=== PATIENT | male | born 1985 | race African-American/Black ===

== ENCOUNTER 2020-09-01 10:51 | Outpatient (REF) | payer MEDICAID, OTHER, SELFPAY ==
--- NOTE | 2020-09-01 | US_ITS ---
EXAMINATION: RENAL ULTRASOUND CLINICAL INFORMATION: Hematuria proteinuria COMPARISON: None TECHNIQUE: Grayscale and color imaging of the kidneys FINDINGS: The kidneys are normal in contour and symmetric in size with the right kidney measuring 10.7 x 5.5 x 5.5 cm and the left kidney measuring 10.8 x 6.1 x 4.3 cm. Renal cortical thickness and echogenicity is normal. No renal stone, mass or hydronephrosis is seen. IMPRESSION: Normal renal ultrasound.
== END 2020-09-01 10:52 | disposition home or self-care (01) ==
LOC: HO.US 10:51
PROVIDERS: PCP Nurse Practitioner Primary Care; Visit Provider Nurse Practitioner Primary Care
DX: R31.9 Hematuria, unspecified (principal); R80.9 Proteinuria, unspecified
CPT/HCPCS: 76775

== ENCOUNTER → 2020-09-07 15:14 | Outpatient (REF) | payer MEDICAID, OTHER, SELFPAY ==
--- NOTE | 2020-09-07 15:00 | CA_ITS ---
Transthoracic Echocardiogram Patient (Last, First, Middle): Brian Burroughs Foster Mancilla Gender: Male Date of : 1985 Age: 35 Procedure Date: 09/07/2020 Procedure Type: Transthoracic Echocardiogram Location: OP Height: 170.18 cm Weight: 64.41 kg BSA: 1.75 m2 Heart Rate: bpm BP: 122 / 60 mmHg Mobile Manager: Referring MD: Cristina Hong NP Symptoms: CARDIAC MURMUR Study Quality: Good ECG Rhythm: Sinus Conclusions: - The left ventricular systolic function is normal. The visually estimated ejection fraction is between 60-65%. - There is evidence of a small membranous ventricular septal defect with left to right shunting. The membranous VSD measures 0.60 cm x 0.60 cm. - No obvious valvular pathology seen on this study. - The pulmonary artery systolic pressure is normal. Findings Left Ventricle Normal left ventricular cavity size. There is normal left ventricular wall thickness. The left ventricular systolic function is normal. The visually estimated ejection fraction is between 60-65%. There is no evidence of regional wall motion abnormalities. Diastolic function is normal for age. There is evidence of a small membranous ventricular septal defect with left to right shunting. The membranous VSD measures 0.60 cm x 0.60 cm. Peak gradient across the VSD 73 mm Hg. Right Ventricle Mildly increased right ventricular cavity size. There is normal right ventricular systolic function. Atria The left atrium is mildly dilated. The right atrium is normal in size. Aortic Valve There is a normal trileaflet aortic valve. There is no aortic valve stenosis. There is no aortic valve regurgitation. Mitral Valve The mitral valve appears normal. There is trace mitral valve regurgitation. There is no mitral valve stenosis. Pulmonic Valve The pulmonic valve was not well visualized. There is trace pulmonic valve regurgitation. Tricuspid Valve Normal tricuspid valve structure. There is trace tricuspid valve regurgitation. The pulmonary artery systolic pressure is normal. Great Vessels The aortic annulus, sinuses of valsalva, and asc aorta are normal in size. Venous The inferior vena cava is normal in size and collapses greater than 50% with inspiration. Prior Study Comparison No prior study available for comparison. Recommendations, Care & Conclusions No obvious valvular pathology seen on this study. Measurements 2D Linear Measurements IVSd: 0.88 0.6-0.9/0.6-1.0 cm LVIDd: 4.91 3.9-5.3/4.2-5.9 cm LVIDd Index: 2.81 2.4-3.2/2.2-3.1 cm/m2 LVIDs: 2.75 2.0-3.6 cm LVPWd: 0.97 0.7-1.1 cm Ao Root: 2.40 2.1-3.5 cm LA Diam: 3.10 2.7-3.8/3.0-4.0 cm LAIDs Index: 1.77 1.5-2.3 cm/m2 LV Mass: 198.31 67-162/88-224 g LV Mass Index: 113.32 43-95/49-115 g/m2 LVOT Diam: 2.10 3.0+(-)1.3 cm Mitral Valve MV Pk E: 0.77 MV PK A: 0.49 MV Decel Time: 215.00 E/A: 1.60 E'Lateral: 15.80 E'Medial: 11.00 E/E' Med: 7.00 E/E' Lat: 4.80 PHT: 63.00 MVA PHT: 3.49 Decel Hardin: 3.57 Aortic Valve AoV Pk Jose Angel: 1.64 AoV Mn Jose Angel: 1.03 AoV VTI: 0.32 AoV Pk Grad: 11.00 Aov Mn Grad: 5.00 TRUDI Cont.VTI: 2.15 LVOT LVOT Pk Jose Angel: 1.06 LVOT Mn Jose Angel: 0.64 LVOT VTI: 0.20 LVOT Pk Grad: 4.00 LVOT Mn Grad: 2.00 LVOT Diam: 2.10 LVOT Area: 3.46 Diastolic Function MV Pk E: 0.77 MV Pk A: 0.49 E/A: 1.60 E'Medial: 11.00 E/E' Med: 7.00 E' Laterial: 15.80 E/E' Lat: 4.80 Tricuspid Valve TR Pk Jose Angel: 2.07 TR Pk Grad: 17.00 RA Press: 3.00 RVSP: 20.00 Great Vessels Aorta Ao Root-2D: 2.40 2.0-3.7 cm Pulmonary Valve PV Pk Jose Angel: 1.45 Peak PV Grad: 8.00 Updated in Other Vendor System with Status of Final Lauro Agrawal MD electronically signed on 09/07/2020 5:45:43 PM with status of Final
== END ==
LOC: HO.CARD 15:14
PROVIDERS: PCP Nurse Practitioner Primary Care; Visit Provider Nurse Practitioner Primary Care
DX: R01.1 Cardiac murmur, unspecified (principal)
CPT/HCPCS: 93306

== ENCOUNTER 2020-11-24 13:53 | Outpatient (REF) | payer OTHER, SELFPAY | END 2020-11-24 13:54 | disposition home or self-care (01) | LOC: HO.LAB 13:53 | PROVIDERS: PCP Nurse Practitioner Primary Care; Visit Provider Internal Medicine | DX: Z20.828 Contact with and (suspected) exposure to other viral communicable diseases (principal) | CPT/HCPCS: C9803; U0003 ==

== ENCOUNTER 2020-12-20 11:25 | Outpatient (REF) | payer OTHER, SELFPAY | END 2020-12-20 11:26 | disposition home or self-care (01) | LOC: HO.LAB 11:25 | PROVIDERS: Visit Provider Internal Medicine | DX: Z20.822 Contact with and (suspected) exposure to COVID-19 (principal) | CPT/HCPCS: 36415; C9803; U0003 ==

== ENCOUNTER 2021-01-03 13:45 | Outpatient (REF) | payer OTHER, SELFPAY | END 2021-01-03 13:46 | disposition home or self-care (01) | LOC: HO.LAB 13:45 | PROVIDERS: Visit Provider Internal Medicine | DX: Z20.822 Contact with and (suspected) exposure to COVID-19 (principal) | CPT/HCPCS: 36415; C9803; U0003; U0005 ==

== ENCOUNTER 2022-02-06 12:03 | Outpatient (REF) | payer OTHER, SELFPAY ==
--- NOTE | ~2022-02-06 | XR_ITS ---
EXAMINATION: XR LUMBOSACRAL SPINE CLINICAL INFORMATION: Low back pain COMPARISON: None TECHNIQUE: Three views of the lumbosacral spine. FINDINGS: There is normal lumbar segmentation with 5 nonrib-bearing lumbar vertebrae of normal height and normal lumbar lordosis. There is no vertebral compression, spondylolisthesis, destructive process. No definite focal disc narrowing and no erosive change. There is borderline anterior spurring mid to lower vertebral bodies. The SI joints and visualized sacrum are unremarkable. XR/XR lumbar spine 2-3V IMPRESSION: Unremarkable examination.
== END 2022-02-06 12:04 | disposition home or self-care (01) ==
LOC: HO.XRAY 12:03
PROVIDERS: Absent Provider Nurse Practitioner Primary Care; PCP Nurse Practitioner Primary Care; Visit Provider Emergency Medicine
DX: M54.50 Low back pain, unspecified (principal)
CPT/HCPCS: 72100

== ENCOUNTER 2022-03-08 13:42 | Outpatient (RCR) | payer OTHER, SELFPAY | END 2022-03-30 10:44 | disposition home or self-care (01) | LOC: HO.PT 13:42 | PROVIDERS: PCP Nurse Practitioner Primary Care; Visit Provider Emergency Medicine | DX: M54.50 Low back pain, unspecified (principal) | CPT/HCPCS: 97110; 97161; 97530 ==

== ENCOUNTER 2024-11-30 09:07 | Emergency (ER) | payer OTHER, SELFPAY ==
[2024-11-30 09:31] VITALS: BP 109/71; PULSE 95; RESP 18; TEMP 36.3; O2SAT 100; BMI 23.7
[2024-11-30 11:40] VITALS: BP 117/72; PULSE 79; RESP 18; O2SAT 99
[2024-11-30] MEDS: Lidocaine HCl 1 % MPF 5 ML VIAL 10 ML SUBCUT (11:55)
--- NOTE | 2024-11-30 12:10 | ED.SKABFB ---
HPI - Skin/Abscess/Foreign Bdy General Chief complaint: Skin/Abscess/Foreign Body Stated complaint: abscess? 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 Mcgrath HPI narrative: 39-year-old male came in for evaluation of a painful nodule in between the buttock cheeks for the past day, can not sit down can not put any pressure on his behind for severe pain, no fever, no chills Related Data Previous Rx's ?Medication ?Instructions ?Recorded doxycycline hyclate 100 mg tablet 100 mg PO BID #14 tabs 11/30/24 Allergies Allergy/AdvReac Type Severity Reaction Status Date / Time No Known Allergies Allergy Verified 11/30/24 09:32 Review of Systems Review of Systems: All other systems are reviewed and are negative Constitutional: Reports as per HPI and Reports no additional constitutional complaints Eyes: Reports as per HPI and Reports no additional eye complaints Reports system reviewed and no additional complaints, except as documented Cardiovascular: Reports as per HPI and Reports no additional cardiovascular complaints Respiratory: Reports as per HPI and Reports no additional respiratory complaints Gastrointestinal: Reports as per HPI and Reports no additional gastrointestinal complaints Genitourinary: Reports no additional female genitourinary complaints Musculoskeletal: Reports no additional musculoskeletal complaints Skin/Breast: Reports system reviewed and no additional complaints, except as docu Psychiatric: Reports no additional psychiatric complaints Endocrine: Reports no additional endocrine complaints Hematologic/Lymphatic: Reports no additional hematologic/lymphatic complaints Allergic/Immunologic: Reports no additional allergic/immunologic complaints Reports system reviewed and no additional complaints, except as documented and Reports Abnormal speech present [facility] Social History Social History Advance Directives: No Advance Directives Information Provided: Yes Physical Exam Vital Signs: Vital Signs: Last Vital Signs Temp 97.3 F 11/30/24 09:31 Pulse 79 11/30/24 11:40 Resp 18 11/30/24 11:40 BP 117/72 11/30/24 11:40 Pulse Ox 99 11/30/24 11:40 O2 Del Method Room Air 11/30/24 11:40 BMI result Body Mass Index 23.7 Vital signs have been reviewed and appear to be correct. Blood pressure elevated. Heart rate normal. Respiratory rate normal. Temperature normal. Oxygen saturation normal. Appearance: Alert. Oriented X3. No acute distress. Head: Normal external exam. Normocephalic. Atraumatic. No Prieto signs noted. No raccoon eyes noted Eyes: PERRLA. EOMI. Conjunctiva and sclera normal. Eyelids normal. ENT: TM's Normal. Pharynx normal. Uvula midline. Moist mucous membranes. No trismus noted. No drooling noted. No muffled voice noted. Neck: Normal inspection. Neck supple. FROM. No adenopathy. Thyroid Normal. No meningeal signs. No neck mass noted. CVS: Normal heart rate and rhythm. Heart sound normal. No murmurs noted. Pulses normal throughout. Respiratory: No respiratory distress. Painless inspiration. Breath sounds normal. No wheezes/rales/rhonchi noted. Chest nontender. No accessory muscle usage noted or decreased air movement noted. Abdomen: Soft and nontender. Bowel sounds normal in all 4 quadrants. No distention noted. No organomegaly noted. No visible injury noted. Rectal exam: +fluctuation nodule along the superior gluteal fold, tender to touch. Skin is slightly erythematous. Back: No CVA tenderness. Full range of motion noted. Skin: Skin warm and dry. Normal skin color. Normal skin turgor. No rashes/lesions/lacerations noted. Extremities: No lower extremity edema. Extremities exhibit normal range of motion. Extremities nontender. Neuro: Oriented X 3. Cranial nerve exam: II-XII are grossly intact No motor deficit. No sensory deficit. Reflexes normal. Course Reevaluation(s) Reevaluation #1: Pilonidal cyst and abscess, s/p I and D, doxycycline, Sitz bath, follow-up with surgery. Time: 12:18 Medications Administered Discontinued Medications Generic Name Dose Route Start Last Admin Trade Name Freq PRN Reason Stop Dose Admin Lidocaine HCl 10 ml 11/30/24 11:52 11/30/24 11:55 Lidocaine Hcl 1 % Mpf 5 Ml Vial SUBCUT 11/30/24 11:53 10 ml ONCE ONE Administration Medical Decision Making Differential Diagnosis Differential Diagnoses: The differential diagnosis associated with the presentation includes (Pilonidal abscess, hemorrhoids.) Admission/Observation Consideration of admission/observation: Escalation of care including admission/observation considered Discharge Plan Discharge Clinical Impression: Pilonidal abscess Patient Disposition: Home, Self-Care Instructions: Sitz Bath (DC), Pilonidal Cyst Excision (DC) Additional Instructions: Sitz bath every for 15 minutes 3 times today. Take the antibiotic. Follow-up with Dr. Elena. Prescriptions: New doxycycline hyclate 100 mg tablet 100 mg PO BID Qty: 14 0RF Referrals: [facility] [Primary Care Provider] - Miky Elena MD [Physician] - Print Language: Faroese
--- NOTE | 2024-11-30 12:12 | PC.NURSE ---
abscess drained by . pt tolerated well. bleeding controlled.
[2024-11-30 12:47] VITALS: BP 114/68; PULSE 81; RESP 18; TEMP 36.4; O2SAT 99
== END 2024-11-30 12:48 | disposition home or self-care (01) ==
PROVIDERS: Emergency Provider Emergency Medicine
DX: L05.01 Pilonidal cyst with abscess (principal)
CPT/HCPCS: 10080; 99284; J2003

== ENCOUNTER 2025-07-06 16:35 | Outpatient (REF) | payer OTHER, SELFPAY ==
[2025-07-06 16:49] LABS: Appearance Urine Clear; Glucose Urine UA Negative (Negative); PH 6.5 (5.0-9.0); Specific Gravity - Urine 1.015 (1.005-1.025); UMIC TRIGGER UACC YES
[2025-07-06 17:25] LABS: Microalbum/Creatinine Ratio Ur 99.6 ug/mg cr (<30)
== END 2025-07-06 16:36 | disposition home or self-care (01) ==
LOC: HO.HHCLNP 16:35
PROVIDERS: Visit Provider Nurse Practitioner Primary Care
DX: R80.9 Proteinuria, unspecified (principal)
CPT/HCPCS: 81001; 82043; 82570

== ENCOUNTER → 2025-07-17 14:13 | Outpatient (REF) | payer OTHER, SELFPAY ==
--- NOTE | ~2025-07-17 | US_ITS ---
EXAMINATION: US RETROPERITONEAL LIMITED (RENAL ONLY) CLINICAL INFORMATION: Proteinuria. COMPARISON: September 01, 2020 TECHNIQUE: Real-time ultrasound kidneys using grayscale and color Doppler technique. FINDINGS: RIGHT KIDNEY: 10 x 7 x 6 cm (SAG x AP x TRV). Volume: 205 cc. Normal echotexture. Normal renal cortical thickness. No hydronephrosis. No gross solid or cystic lesion detected by the technologist. LEFT KIDNEY: 10 x 6 x 6 cm (SAG x AP x TRV). Volume: 189 cc. Normal echotexture. Normal renal cortical thickness. No hydronephrosis. No gross solid or cystic lesion detected. US/US renal BI IMPRESSION: Normal exam.. Electronically signed by: Srinivasa Lugo MD 07/17/2025 03:50 PM EDT
--- OUTSIDE RECORDS SUMMARY | 2025-07-17 14:15 | XMS_ITS | Clinical Summary ---
Author Organization [employer] Address [address] [place] [address] Care Team Providers Care Front End Web Designer Name Role Phone Cristina Hong Primary Care Provider [phone] Allergies No known active allergies Medications acetaminophen (Tylenol) 500 MG tabletIndication s:Supra-eruption of tooth Take 1 tablet (500 mg) by mouth every 6 (six) hours if needed for mild pain for up to 20 doses. 20 tablet 10/15/2024 Active ibuprofen 600 MG tabletIndication s:Supra-eruption of tooth Take 1 tablet (600 mg) by mouth every 6 (six) hours if needed for mild pain for up to 20 doses. 20 tablet 10/15/2024 Active Active Problems Problem Noted Date Diagnosed Date VSD (ventricular septal defect) 07/06/2025 Supra-eruption of tooth 10/15/2024 Encounters Date Type Department Care Team Description 07/10/2025 Results Follow-Up [address] [address] Cristina Hong ANP Albumin, Random Urine W/Creatinine, Urinalysis, Complete, with Reflex to Culture 07/08/[address] [phone] Cristina Hong ANP Telephone Call 07/06/2025 2:15 PM EDT Office Visit [address] [address] Cristina Hong ANP VSD (ventricular septal defect) (Primary Dx); Proteinuria, unspecified type; Healthcare maintenance 07/06/2025 Travel 07/03/[address] [address] Cristina Hong ANP chart prep from Last 3 Months Immunizations Immunization Administration Dates Next Due Hep B, adult 06/22/2020,01/22/2020,12/22/2019 Influenza injectable quadriv alent preservative free 12/05/2019 TD (adult), 2 Lf tetanus tox oid, preservative free, adsorbed 06/10/2019 Tdap 07/06/2025 Social History Tobacco Use Types Packs/Day Years Used Date Smoking Tobacco: Never Smokeless Tobacco: Never Tobacco Cessation:Counseling Given: Not Answered Depression Answer Date Recorded Patient Health Questionnaire-9 Score 0 07/06/2025 Patient Health Questionnaire-9 Score 0 07/06/2025 Last PHQ-9: Questionnaire Data Not on file 0 07/06/2025 Housing Stability Answer Date Recorded What is your housing situation today? I have chris rodriguez 07/06/[address] you li ve. Do you have problems with any of the following? None of the above 07/06/2025 Food Insecurity Answer Date Recorded Within the past 12 months, y ou worried that your food would run out before you got money to buy more: Never True 07/06/2025 Within the past 12 months,th e food you bought just didn't last and you didn't have enough money to get more: Not on file 09/2025 Transportation Answer Date Recorded In the past 12 months, has l ack of transportation kept you from medical appts, meetings, work or from getting things needed for daily living? No 07/06/2025 Utilities Answer Date Recorded In the past 12 months, has t he electric, gas, oil or water company threatened to shut off services in your home? No 07/06/2025 Depression Answer Date Recorded Patient Health Questionnaire-2 Score 0 07/06/2025 Internet Access Answer Date Recorded Internet Access Q1 Yes 07/06/2025 Internet Access Q2 Not on file 07/06/2025 Sex and Gender Information Value Date Recorded Sex Assigned at Male 09/25/2022 10:36 AM EDT Legal Sex Male 10:36 AM EDT Gender Identity Male 09/25/2022 10:36 AM EDT Sexual Orientation Choose not to disclose 2021 10:36 AM EDT Last Filed Vital Signs Vital Sign Reading Time Taken Comments Blood Pressure 118/88 07/06/2025 2:32 PM EDT Pulse 82 07/06/2025 2:32 PM EDT Temperature 36.7 C (98 F) 01/11/2023 9:01 AM EST Respiratory Rate 16 07/06/2025 2:32 PM EDT Oxygen Saturation 99% 01/11/2023 9:01 AM EST Inhaled Oxygen Concentration - - Weight 70.3 kg (155 lb) 07/06/2025 2:32 PM EDT Height 169.8 cm (5' 6.85 ) 07/06/2025 2:32 PM ED T Body Mass Index 24.39 07/06/2025 2:32 PM EDT Plan of Treatment Upcoming Encounters Date Type Department Care Team (Late st Contact Info) Description 08/21/2025 2:30 PM EDT Office Visit [facility] [address] [place] [address] Cristina Hong ANP [address] [place], [place] [phone] Health Maintenance Due Date Last Done Comments Lipid Panel 1985 SDOH Screening 1985 Family Planning (PISQ) 2001 HPV Vaccines (1 - Male 3-dos e series) 2001 Dental Oral Exam 05/01/2024 10/30/2023 Dental Prophylaxis 05/01/2024 10/30/2023 COVID-19 Vaccine (3 - 2023-2 5 season) 2024 04/20/2021, 03/23/2021 Dental X-Ray: Bitewings 10/31/2024 10/30/2023 Influenza Vaccine (#1) 2025 12/05/2019 Alcohol/Substance Use Screening 07/06/2026 07/06/2025 Depression Screening 07/06/2026 07/06/2025, 07/06/2025 Disability Screening 07/06/2026 07/06/2025 Tobacco Screening 07/06/2026 07/06/2025 Dental X-Ray: Full Mouth 10/31/2026 10/30/2023 DTaP/Tdap/Td Vaccines (2 - T d or Tdap) 07/06/2035 07/06/2025, 06/10/2019 Zoster Vaccines (1 of 2) 2036 RSV Patients and Patients Aged 60 years or older (1 - 1-dose 75+ series) 2061 HIV Screening Completed 12/05/2019 Hepatitis C Screening Completed 12/05/2019 Hepatitis B Vaccines Completed 06/22/2020, 01/22/2020, 12/22/2019 HIB Vaccines Aged Out No longer eligi ble based on patient's age to complete this topic Hepatitis A Vaccines Aged Out No long er eligible based on patient's age to complete this topic IPV Vaccines Aged Out No longer eligi ble based on patient's age to complete this topic Meningococcal B Vaccine Aged Out No l onger eligible based on patient's age to complete this topic Meningococcal Vaccine Aged Out No erendira nish eligible based on patient's age to complete this topic Pneumococcal Vaccine: Pediatrics (0 to 5 Years) and At-Risk Patients (6 to 49) Years Aged Out No longer eligible b ased on patient's age to complete this topic RSV under 20 months Aged Out No longe r eligible based on patient's age to complete this topic Rotavirus Vaccines Aged Out No longer eligible based on patient's age to complete this topic Procedures Procedure Name Priority Date/Time Associated Diagnosis Comments URINALYSIS, COMPLETE, WITH REFLEX TO CULTURE Routine 07/06/2025 2:39 PM EDT Proteinuria, unspecified type ALBUMIN, RANDOM URINE W/CREATININE Routine 07/06/2025 2:39 PM EDT Proteinuria, unspecified type PROPHYLAXIS - ADULT Routine 10/30/2023 8 :00 AM EST Dental calculus INTRAORAL - COMPLETE SERIES OF RADIOGRAPHIC IMAGES Routine 10/30/2023 8:00 AM EST Dental calculus COMPREHENSIVE ORAL EVALUATION - NEW OR ESTABLISHED PATIENT Routine 10/30/2023 8:00 AM EST Dental calculus ZZZ HISTORICAL HEPATITIS C ANTIBODY RFLX Routine 12/05/2019 10:54 AM EST ZZZ HISTORICAL HIV AB/AG Routine 12/05/2019 10:54 AM EST from Last 3 Months or Most Recently Relevant to Health Maintenance Results * (ABNORMAL) Urinalysis, Complete, with Reflex to Culture (07/06/2025 2:39 PM EDT) Color Urine Yellow [facility] Appearance Urine Clear [facility] PH 6.5 5.0 - 9.0 [facility] Glucose Urine UA Negative Negative mg/dL [facility] Urine Blood Small (1+)(A) Negative [facility] Specific [place] - Urine 1.015 1.005 - 1.025 [facility] Urine Protein 30 (1+)(A) Neg-Trace mg/dL [facility] Urine Ketones Negative Negative mg/dL [facility] Nitrite Urine Negative Negative [facility] Leukocyte Esterase Urine Negative Negative [facility] RBC Urine 6-10(A) 0 - 2 /HPF [facility] Urine WBC 0-5 0 - 5 /HPF [facility] Urine Squamous Epithelial Cell 0-2 0 - 2 /HPF [facility] Urine Bacteria None Seen None Seen [facility] Hyaline Casts, Urine 0-2 0 - 2 /LPF [facility] Urine 07/06/2025 2:39 PM EDT 07/06/2025 4:35 PM EDT Narrative [facility] - 07/06/2025 4:59 PM EDT Urine, Clean Catch Cristina Hong [facility] URINE ORDERABLES Final Resul t [facility] [address] [place] [phone] * (ABNORMAL) Albumin, Random Urine W/Creatinine (07/06/2025 2:39 PM EDT) Creatinine, Urine 103.35 mg/dL [facility] Microalbumin Urine 103.0 mg/L [facility] Microalbum Creatinine Ratio Ur 99.6(H) <30 ug/mg cr [facility] Comment:Albumin/Creatinine R atio Reference Ranges: Normal: < 30 ug/mg creatinine Microalbuminuria: 30 - 300 ug/mg creatinineClinical Albuminuria: > 300 ug/mg creatinine Urine (Urine, Random) 07/06/2025 2:39 PM EDT 07/06/2025 4:35 PM EDT Cristina [facility] URINE ORDERABLES Final Resul t Performing Organization Address [facility] [address]/[facility] Co de Phone Number [facility] [address] [place] [address] [phone] * HEPATITIS C ANTIBODY RFLX (12/05/2019 10:54 AM EST) HEPATITIS C ANTIBODY NON[facility]ACTIVE [facility] Comment: Antibodies to HCV not detected; does not exclude early acute HCV infection. 12/05/2019 10:5 4 AM EST Cristina Hong ANP HISTORICAL/NON ORDERABLE LABS Fi nal Result Performing Organization Address [facility] Phone Number [facility] [address] * HIV AB/AG (12/05/2019 10:54 AM EST) HIV AG/AB NONREACTIVE [facility] Comment: HIV-1 p24 Ag and/or HIV-1/HIV-2 Ab not detected. A test result that is nonreactive does not exclude the possibility of exposure to or infection with HIV-1 and/or HIV-2. Nonreactive results in this assay for individuals with prior exposure to HIV-1 and/or HIV-2 may be due to antigen and antibody levels that are below the limit of detection of this assay. The [employer] HIV Ag/Ab Combo assay result and supplemental assay results should be interpreted in conjunction with the patient's clinical presentation, history and other laboratory results. If the results are inconsistent with clinical evidence, additional testing is suggested to confirm the result. 12/05/2019 10:5 4 AM EST us Cristina Hong ANP HISTORICAL/NON ORDERABLE LABS Fi nal Result Performing Organization Address [facility] [address]/[facility] de Phone Number [facility] [address] from Last 3 Months or Most Recently Relevant to Health Maintenance Insurance [facility] 2 DENTAL - HSN FULL (MEDICAID) Care Teams Front End Web Designer Relationship Specialty Start Date End Date Cristina Hong ANP [address] [place] [address] [place] [address] PCP - General Family Medicine 12/05/19
--- NOTE | 2025-07-17 15:05 | CA_ITS ---
Transthoracic Echocardiogram Patient (Last, First, Middle): Brian Burroughs Junior, Foster Gender: Male Date of : 1985 Age: 39 Procedure Date: 07/17/2025 Procedure Type: Transthoracic Echocardiogram Location: OP Height: 170.18 cm Weight: 70.31 kg BSA: 1.81 m2 Heart Rate: bpm BP: 122 / 60 mmHg Dispatcher Clerk: PIPO Referring MD: Cristina Hong NP Wind Farm Designer: Gregory Arana MD Symptoms: Q21.0 VSD Study Quality: Good ECG Rhythm: Sinus Conclusions: - 1. Perimembranous VSD noted with calculated shunt ratio on this study at 2.6 which is significant, clinical correlation suggested 2. Normal LV systolic and diastolic function 3. Mildly dilated right ventricle and pulmonary artery 4. Mildly dilated left atrium 5. Normal cardiac valvular Dopplers 6. No gross pericardial effusion Findings Left Ventricle Normal left ventricular size, thickness, and systolic function. The visually estimated ejection fraction is between 60-65%. Spectral Doppler is indicative of a normal filling pattern. There is evidence of a small membranous ventricular septal defect. The membranous VSD measures 0.60 cm x 0.60 cm. The shunt ratio is measured at 2.6 which is clinically significant. However could be overestimated due to technical measurement errors. Needs further evaluation either by cardiac catheterization or cardiac MRI Right Ventricle Mildly increased right ventricular cavity size. There is normal right ventricular systolic function. Atria The left atrium is mildly dilated. Interatrial shunt cannot be excluded. The right atrium is likely dilated. Aortic Valve Normal aortic valve structure and function. There is no aortic valve stenosis. There is no aortic valve regurgitation. Mitral Valve Normal mitral valve structure and function. There is trace mitral valve regurgitation. There is no mitral valve stenosis. Pulmonic Valve The pulmonic valve is normal. There is mild pulmonic valve regurgitation. Tricuspid Valve Normal tricuspid valve structure. The right ventricular systolic pressure is 36 mmHg. Normal right atrial pressure. Great Vessels All visible segments of the aorta are normal in size. There is no dilatation of the ascending aorta measuring 2.50 cm. The pulmonary artery is moderately dilated. Venous The inferior vena cava is normal in size and collapses greater than 50% with inspiration. Pericardium/Pleural There is no evidence of pericardial effusion. Measurements 2D Linear Measurements IVSd: 1.07 0.6-0.9/0.6-1.0 cm LVIDd: 5.23 3.9-5.3/4.2-5.9 cm LVIDd Index: 2.89 2.4-3.2/2.2-3.1 cm/m2 LVIDs: 3.32 2.0-3.6 cm LVPWd: 1.03 0.7-1.1 cm Ao Root: 2.60 2.1-3.5 cm LA Diam: 4.20 2.7-3.8/3.0-4.0 cm LAIDs Index: 2.32 1.5-2.3 cm/m2 LV Mass: 260.81 67-162/88-224 g LV Mass Index: 144.09 43-95/49-115 g/m2 LVOT Diam: 2.00 3.0+(-)1.3 cm 2D Systolic Function EF 4C: 67.40 >55% EF 2C: 59.60 >55% EF BiP: 62.20 >55% Mitral Valve MV Pk E: 0.84 MV PK A: 0.45 MV Decel Time: 183.00 E/A: 1.90 E'Lateral: 12.90 E'Medial: 11.00 E/E' Med: 7.60 E/E' Lat: 6.50 PHT: 54.00 MVA PHT: 4.07 Decel Davidson: 4.58 Aortic Valve AoV Pk Jose Angel: 1.51 AoV Mn Jose Angel: 1.06 AoV VTI: 0.34 AoV Pk Grad: 9.00 Aov Mn Grad: 5.00 TRUDI Cont.VTI: 1.85 LVOT LVOT Pk Jose Angel: 0.96 LVOT Mn Jose Angel: 0.64 LVOT VTI: 0.20 LVOT Pk Grad: 4.00 LVOT Mn Grad: 2.00 LVOT Diam: 2.00 LVOT Area: 3.14 Diastolic Function MV Pk E: 0.84 MV Pk A: 0.45 E/A: 1.90 E'Medial: 11.00 E/E' Med: 7.60 E' Laterial: 12.90 E/E' Lat: 6.50 Right Ventricle TAPSE (mm): 27.00 TVS' Jose Angel: 11.00 Tricuspid Valve TR Pk Jose Angel: 2.88 TR Pk Grad: 33.00 RA Press: 3.00 RVSP: 36.00 Great Vessels Aorta Ao Root-2D: 2.60 2.0-3.7 cm Ao Asc: 2.50 2.1-3.4 cm Pulmonary Veins Pulm Vein S/D 1.40 Pulmonary Valve PV Pk Jose Angel: 1.53 Peak PV Grad: 9.00 Shunting QP:QS: 2.60 Updated in Other Vendor System with Status of Final Gregory Arana MD electronically signed on 07/18/2025 11:03:31 AM with status of Final
== END ==
LOC: HO.CARD 14:13
PROVIDERS: PCP Nurse Practitioner Primary Care; Visit Provider Nurse Practitioner Primary Care
DX: Q21.0 Ventricular septal defect (principal); R80.9 Proteinuria, unspecified
CPT/HCPCS: 76775; 93306

== ENCOUNTER → 2025-07-17 15:05 | Outpatient (BNV) | payer OTHER, SELFPAY | PROVIDERS: PCP Nurse Practitioner Primary Care; Visit Provider Internal Medicine Cardiovascular Disease | DX: Q21.0 Ventricular septal defect (principal); I37.1 Nonrheumatic pulmonary valve insufficiency; I28.8 Other diseases of pulmonary vessels | CPT/HCPCS: 93306 ==

== ENCOUNTER → 2025-07-17 15:30 | Outpatient (BNV) | payer OTHER, SELFPAY | PROVIDERS: PCP Nurse Practitioner Primary Care; Visit Provider Radiology Diagnostic Radiology | DX: R80.9 Proteinuria, unspecified (principal) | CPT/HCPCS: 76775 ==

== ENCOUNTER 2025-07-28 10:47 | Outpatient (AMB) | payer OTHER, SELFPAY ==
[2025-07-28 11:04] VITALS: BP 110/60; PULSE 77; BMI 23.5
--- NOTE | 2025-07-28 11:04 | A.OFFVIS_ITS ---
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 In the recent echocardiogram, ventricular septal defect had measured 0.6x0.6 cm in size and the shunt ratio measured at 2.6. Patient himself states that he has known about this since childhood but no regular cardiology follow-up. 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 Otherwise, within limits of his activity, he does not have any clear-cut symptoms like angina or shortness of breath or palpitations or dizzy spells or syncopal episodes. Active with no limitations. No major comorbidities. COUNTS INCLUDE 234 BEDS AT THE [facility] Medical History VSD (ventricular septal defect) Family History (Updated 07/28/25 @ 11:15 by Savi Tillman) Father No problems noted. Mother No problems noted. Social History (Updated 07/28/25 @ 11:16 by Savi Tillman) Alcohol intake: current Alcohol intake frequency: a few times a week Alcohol type: beer Patient Tobacco Use Status: Never used Tobacco Review of Systems Const Denies weakness ENT Denies dizziness Card Denies chest pain, Denies chest pain with activity, Denies syncope, Denies rapid heart rate, Denies pedal edema, Denies edema, Denies leg edema, Denies lightheadedness, Denies palpitations, Denies dyspnea, Denies dyspnea on exertion and Denies orthopnea Resp Denies cough, Denies dyspnea and Denies dyspnea on exertion GI Denies hematochezia and Denies change in stool character Musc Denies abnormal gait, Denies muscle cramps, Denies muscle weakness, Denies numbness, Denies radiating pain into limb and Denies tingling Neuro Denies abnormal gait, Denies dizziness, Denies syncope, Denies numbness, Denies tingling and Denies weakness Endo Denies palpitations Physical Exam Vital Signs: Last Vital Signs Pulse 77 07/28/25 11:04 BP 110/60 07/28/25 11:04 BMI result Body Mass Index 23.5 Const General: comfortable and no acute distress Orientation/consciousness: patient oriented x3 HEENT Other: Unremarkable Head: Yes normal to inspection Neck Neck: Yes normal visual inspection Chest Chest palpation & inspection: normal inspection of the chest Resp Auscultation: clear to auscultation bilaterally Cardio Palpation: normal PMI Heart sounds: S1 normal heart sound present, S2 normal heart sound present, no gallops, Murmur heart sound present systolic III/ and at the left sternal border and no rubs GI Palpation (GI): Soft to palpation Back/Spine/Pelvis Other: unremarkable Skin General skin exam: no rashes or lesions noted Neuro General: patient oriented x3 Extrem General: Yes normal to inspection Psych Mental Status: mental status grossly normal Office Procedures EKG Details: EKG with underlying sinus rhythm at 77/Min; supraventricular ectopy; rightward axis; no ischemic changes; [place] [address]-Hlovlcghrxiatnycl, Complete Assessment & Plan Assessment & Plan (1) VSD (ventricular septal defect): Code(s): Q21.0 - Ventricular septal defect Category: Medical Plan In the recent echocardiogram, LVEF is 60-65%. Normal left ventricular size. Mildly increased right ventricular size with normal function. No significant valvular findings. Reported ventricular septal defect of membranous type of size 0.6 x 0.6 cm. Shunt ratio measured at 2.6. Mild pulmonary hypertension. For comparison, there is a prior study from 2019. In that study, there was no evidence of pulmonary hypertension. Shunt ratio was not described in that study. Findings discussed with patient in detail. Due to magnitude of shunt as well as presence of mild pulmonary hypertension we will refer him to adult congenital heart disease for further evaluation and assess if this needs closure or not. Referral placed for Dr. Chris. With regard to the Commercial driving licence, no cardiac contraindications as he has got no symptoms from the VSD itself. Orders: Referrals Cardiology Referral Q21.0 - Ventricular septal defect Medications: Discontinued doxycycline hyclate Discontinued Reason: Patient no longer taking 100 mg PO BID 14 tabs 0RF Coding Level of Care Code New Pt Level 4 (28013) Complex EM visit Add On G2211 Diagnoses VSD (ventricular septal defect) Q21.0 CPT Codes EKG - CPT: 74292-Pvoppwvzbtsjvriut, Complete ([id number])
--- OUTSIDE RECORDS SUMMARY | 2025-07-28 12:17 | XMS_ITS | Clinical Summary ---
Author Organization [employer] Address [address] [facility] [address] [place] [address] Care Team Providers Care Window Shade Installer Name Role Phone Edd Sanchez Primary Care Provider [phone] Allergies No known active allergies Medications acetaminophen [...] Encounters Date Type Department Care Team Description 07/21/[address] [facility] [address] [place] [phone] Edd Sanchez ANP VSD (ventricular septal defect) (Primary Dx) 07/21/[address] [facility] [address] [place] [phone] Edd Sanchez ANP Referral 07/17/[address] [facility] [address] [place] [phone] Edd Sanchez ANP 07/10/2025 Results Follow-Up [facility] [address] [place] [phone] Edd Sanchez ANP Albumin, Random Urine W/Creatinine, Urinalysis, Complete, with Reflex to Culture 07/08/[address] [facility] [address] [place] [phone] Edd Sanchez ANP Telephone Call 07/06/2025 2:15 PM EDT Office Visit [facility] [address] [place] [address] Edd Sanchez ANP VSD (ventricular septal defect) (Primary Dx); Proteinuria, unspecified type; Healthcare maintenance 07/06/2025 Travel 07/03/[address] [facility] [address] [place] [address] Edd Sanchez ANP chart prep from Last 3 Months [...] Description 08/21/2025 2:30 PM EDT Office Visit [facility] [address] [place] [address] Edd Sanchez, ANP [address] [place] [address] Health Maintenance Due Date Last Done Comments [...] Procedure Name Priority Date/Time Associated Diagnosis Comments US RENAL COMPLETE Routine 07/17/2025 3:3 0 PM EDT URINALYSIS, COMPLETE, WITH REFLEX TO CULTURE Routine [...] Routine 10/30/2023 8:00 AM EST Dental calculus [facility] HISTORICAL HEPATITIS C ANTIBODY RFLX Routine 12/05/2019 10:54 AM EST [facility] HISTORICAL HIV AB/AG Routine 12/05/2019 10:54 AM EST from Last 3 Months or Most Recently Relevant to Health Maintenance Results * US Renal Complete (07/17/2025 3:30 PM EDT) Anatomical Region Laterality Modality Kidney Ultrasound 07/17/2025 3:30 PM EDT Narrative 07/17/2025 3:53 PM EDT [place] [address] Ultrasound Report Signed Patient: Junior Foster Gagnon MR# : [id number] : 1985 Acct:[id number] Age/Sex: 39 / M ADM Date: 07/17/25 Loc: [facility] Attending Dr: Edd Sanchez NP Ordering Physician: EDD SANCHEZ NP Date of Service: 07/17/25 Procedure(s): US renal BI Accession Number(s): [id number] cc: EDD SANCHEZ NP EXAMINATION: US RETROPERITONEAL LIMITED (RENAL ONLY) CLINICAL INFORMATION: Proteinuria. COMPARISON: September 01, 2020 TECHNIQUE: Real-time ultrasound kidneys using grayscale and color Doppler technique. FINDINGS: RIGHT KIDNEY: 10 x 7 x 6 cm (SAG x AP x TRV). Volume: 205 cc. Normal echotexture. Normal renal cortical thickness. No hydronephrosis. No gross solid or cystic lesion detected by the technologist. LEFT KIDNEY: 10 x 6 x 6 cm (SAG x AP x TRV). Volume: 189 cc. Normal echotexture. Normal renal cortical thickness. No hydronephrosis. No gross solid or cystic lesion detected. US/US renal BI IMPRESSION: Normal exam.. Electronically signed by: Srinivasa Lugo MD 07/17/2025 03:50 PM EDT Dictated By: Srinivasa Castano MD Signed By: <Electronically signed by Srinivasa Avery MD in OV> 07/17/25 1550 DD/ 153 TD/TT: 07/17/251536 Athletic Scout: Procedure Note Donotuseinterpreter, Image - 07/17/[address] [address] Ultrasound Report Signed Patient: Brian Burroughs Junior AMR# : [id number] : 1985Acct:[id number] Age/Sex: 39 / MADM Date: 07/17/25 Loc: [facility] Attending Dr: Edd Sanchez ENGINE DESIGNER Ordering Physician: EDD SANCHEZ NP Date of Service: 07/17/25 Procedure(s): US renal BI Accession Number(s): [id number] cc: EDD SANCHEZ NP EXAMINATION: US RETROPERITONEAL LIMITED (RENAL ONLY) CLINICAL INFORMATION: Proteinuria. COMPARISON: September 01, 2020 TECHNIQUE: Real-time ultrasound kidneys using grayscale and color Doppler technique. FINDINGS: RIGHT KIDNEY: 10 x 7 x 6 cm (SAG x AP x TRV). Volume: 205 cc. Normal echotexture. Normal renal cortical thickness. No hydronephrosis. No gross solid or cystic lesion detected by the technologist. LEFT KIDNEY: 10 x 6 x 6 cm (SAG x AP x TRV). Volume: 189 cc. Normal echotexture. Normal renal cortical thickness. No hydronephrosis. No gross solid or cystic lesion detected. US/US renal BI IMPRESSION: Normal exam.. Electronically signed by: Srinivasa Lugo MD 07/17/2025 03:50 PM EDT Dictated By: Srinivasa Castano MD Signed By: <Electronically signed by Srinivasa Avery MDin OV> 07/17/25 1550 DD/ 1530 TD/TT: 07/17/251536 Athletic Scout: us Edd Sanchez ANP IMG US PROCEDURES Final Result * (ABNORMAL) Urinalysis, Complete, with Reflex to Culture (07/06/2025 2:39 PM EDT) Color Urine Yellow [facility] Appearance Urine Clear [facility] PH 6.5 5.0 - 9.0 [facility] Glucose Urine UA Negative Negative mg/dL [facility] Urine Blood Small (1+)(A) Negative [facility] Specific [place] - Urine 1.015 1.005 - 1.025 [facility] Urine Protein 30 (1+)(A) Neg-Trace mg/dL [facility] Urine Ketones Negative Negative mg/dL [facility] Nitrite Urine Negative Negative [facility] Leukocyte Esterase Urine Negative Negative [facility] RBC Urine 6-10(A) 0 - 2 /HPF [facility] Urine WBC 0-5 0 - 5 /HPF [facility] Urine Squamous Epithelial Cell 0-2 0 - 2 /HPF [facility] Urine Bacteria None Seen None Seen [facility] Hyaline Casts, Urine 0-2 0 - 2 /LPF [facility] Urine 07/06/2025 2:39 PM EDT 07/06/2025 4:35 PM EDT Narrative [facility] - 07/06/2025 4:59 PM EDT Urine, Clean Catch Edd Sanchez [facility] URINE ORDERABLES Final Resul t [facility] [address] [place] [phone] * (ABNORMAL) Albumin, Random Urine W/Creatinine (07/06/2025 2:39 PM EDT) Creatinine, Urine 103.35 mg/dL [facility] Microalbumin Urine 103.0 mg/L [facility] Microalbum Creatinine Ratio Ur 99.6(H) <30 ug/mg cr [facility] Comment:Albumin/Creatinine R atio Reference Ranges: Normal: < 30 ug/mg creatinine Microalbuminuria: 30 - 300 ug/mg creatinineClinical Albuminuria: > 300 ug/mg creatinine Urine (Urine, Random) 07/06/2025 2:39 PM EDT 07/06/2025 4:35 PM EDT Edd [facility] URINE ORDERABLES Final Resul t Performing Organization Address [facility]/ZIP Co de Phone Number [facility] [address] [place] [phone] [phone] * HEPATITIS C ANTIBODY RFLX (12/05/2019 10:54 AM EST) HEPATITIS C ANTIBODY [facility] Comment: Antibodies to HCV not detected; does not exclude early acute HCV infection. 12/05/2019 10:5 4 AM EST us Edd Sanchez ANP HISTORICAL/NON ORDERABLE LABS Fi nal Result Performing Organization Address [facility] Phone Number [facility] [address] * HIV AB/AG (12/05/2019 10:54 AM EST) Pathologist [facility] HIV AG/AB NONREACTIVE NR FOUNDATI ON LAB [...] of detection of this assay. The [employer] Manager Molecular HIV Ag/Ab Combo assay result and supplemental assay results should be interpreted in conjunction with the patient's clinical presentation, history and other laboratory results. If the results are inconsistent with clinical evidence, additional testing is suggested to confirm the result. 12/05/2019 10:5 4 AM EST us Edd Sanchez ANP HISTORICAL/NON ORDERABLE LABS Fi nal Result Performing Organization Address [facility] de Phone Number [facility] [address] from Last 3 Months or Most Recently Relevant to Health Maintenance Insurance [facility] 2 DENTAL - HSN FULL (MEDICAID) Care Teams Window Shade Installer Relationship Specialty Start Date End Date Edd Sanchez ANP [address] [place] [address] PCP - General Family Medicine 12/05/19
== END 2025-07-28 11:30 | disposition home or self-care (01) ==
PROVIDERS: PCP Nurse Practitioner Primary Care; Visit Provider Internal Medicine
DX: Q21.0 Ventricular septal defect (principal)
CPT/HCPCS: 93010; 99204

== ENCOUNTER → 2025-07-28 10:47 | Outpatient (BNVA) | payer OTHER, SELFPAY | PROVIDERS: PCP Nurse Practitioner Primary Care; Visit Provider Internal Medicine | DX: Q21.0 Ventricular septal defect (principal) | CPT/HCPCS: 93005; 99202 ==

== ENCOUNTER 2025-08-21 18:10 | Outpatient (REF) | payer OTHER, SELFPAY ==
[2025-08-21 19:21] LABS: Appearance Urine Clear; Glucose Urine UA Negative (Negative); PH 6.0 (5.0-9.0); Specific Gravity - Urine 1.015 (1.005-1.025); UMIC TRIGGER UACC YES
== END 2025-08-21 18:11 | disposition home or self-care (01) ==
LOC: HO.HHCLNP 18:10
PROVIDERS: Visit Provider Nurse Practitioner Primary Care
DX: L02.91 Cutaneous abscess, unspecified (principal); R31.9 Hematuria, unspecified
CPT/HCPCS: 81001; 81003; 87070; 87205

== ENCOUNTER 2025-08-31 11:58 | Outpatient (REF) | payer OTHER, SELFPAY ==
--- NOTE | ~2025-08-31 | XR_ITS ---
XR KNEE CORNEL 3V HISTORY: Bilateral knee pain. COMPARISON: None. TECHNIQUE: AP view bilateral knees standing, lateral and patellofemoral views bilateral knees. FINDINGS: RIGHT KNEE: No fracture, dislocation, or suspicious bone lesion. Joint spaces are normal in all 3 compartments. Normal patellar alignment. No abnormal patellar tilt. No evidence of joint effusion. Soft tissues appear normal. LEFT KNEE: No fracture, dislocation, or suspicious bone lesion. Joint spaces are normal in all 3 compartments. Normal patellar alignment. No abnormal patellar tilt. No evidence of joint effusion. Soft tissues appear normal. XR/XR Knee Cornel 3V IMPRESSION: 1. Normal radiographs of the bilateral knees. Electronically signed by: Phillip Chase MD 08/31/2025 01:45 PM EDT
--- OUTSIDE RECORDS SUMMARY | 2025-08-31 11:00 | XMS_ITS | Encounter Summary ---
Author Organization [employer] Address [address] [place] [address] Care Team Providers Care Calender Operator Helper Name Role Phone Cristina Hong [facility] Primary Care Provider [phone] Reason for Visit * Reason Comments sick visit Both knee pain Encounter Details Date Type Department Care Team ([facility] st Contact Info) Description 08/31/2025 11:00 AM EDT Office Visit [facility] [address] [place] [address] Jelly Gu FNP [address] [place] [address] Acute bilateral knee pain (Primary Dx) Social History Tobacco Use Types Packs/Day Years [...] not to disclose 2021 10:36 AM EDT documented as of this encounter Last Filed Vital Signs Vital Sign Reading Time Taken Comments Blood Pressure 115/89 08/31/2025 11:15 AM EDT Pulse 68 08/31/2025 11:15 AM EDT Temperature 37 C (98.6 F) 08/31/2025 11:15 AM EDT Respiratory Rate 19 08/31/2025 11:15 AM EDT Oxygen Saturation 99% 08/31/2025 11:15 AM EDT Inhaled Oxygen Concentration - - Weight 66.8 kg (147 lb 3.2 oz) 08/31/2025 11:15 AM EDT Height 170.2 cm (5' 7 ) 08/31/2025 11:15 AM EDT Body Mass Index 23.05 08/31/2025 11:15 AM EDT documented in this encounter Plan of Treatment Scheduled Orders Name Type Priority Associated Diagnoses Orde r Schedule XR Ankle 3+ Views Right Imaging Routine Acute bilateral knee pain Expected: 08/31/2025, Expires: 08/31/2026 documented as of this encounter Procedures Procedure Name Priority Date/Time Associated Diagnosis Comments XR KNEE 3 VIEWS BILATERAL Routine 08/31/2025 1:36 PM EDT documented in this encounter Results * XR Knee 3 Views Bilateral (08/31/2025 1:36 PM EDT) Anatomical Region Laterality Modality Lower Extremities, Knee Bilateral Radiogra phic Imaging 08/31/2025 1:36 PM EDT Narrative 08/31/2025 1:48 PM EDT [address] [place] [address] XRay Report Signed Patient: Junior Foster Gagnon MR# : [id number] : 1985 Acct:[id number] Age/Sex: 40 / M ADM Date: 08/31/25 Loc: [facility] Attending Dr: Jelly FOLEY Ordering Physician: Jelly Gu Date of Service: 08/31/25 Procedure(s): XR Knee Hermelindo 3V Accession Number(s): [id number] cc: Jelly Gu Reason for Exam: Bilat knee pain XR KNEE HERMELINDO 3V HISTORY: Bilateral knee pain. COMPARISON: None. TECHNIQUE: AP view bilateral knees standing, lateral and patellofemoral views bilateral knees. FINDINGS: RIGHT KNEE: No fracture, dislocation, or suspicious bone lesion. Joint spaces are normal in all 3 compartments. Normal patellar alignment. No abnormal patellar tilt. No evidence of joint effusion. Soft tissues appear normal. LEFT KNEE: No fracture, dislocation, or suspicious bone lesion. Joint spaces are normal in all 3 compartments. Normal patellar alignment. No abnormal patellar tilt. No evidence of joint effusion. Soft tissues appear normal. XR/XR Knee Hermelindo 3V IMPRESSION: 1. Normal radiographs of the bilateral knees. Electronically signed by: Phillip Chase MD 08/31/2025 01:45 PM EDT Dictated By: Phillip Chase MD Signed By: <Electronically signed by Phillip Chase MD in OV> 08/31/25 1345 DD/ 1336 TD/TT: 08/31/25 1338 Inspector Advanced Composite: Procedure Note Donotuseinterpreter, Image - 08/31/2025 [facility] [address] [place] [address] XRay Report Signed Patient: Brian Burroughs Junior AMR# : [id number] : 1985Acct:[id number] Age/Sex: 40 / MADM Date: 08/31/25 Loc: [facility] Attending Dr: Jelly Okhipo FHA UNDERWRITER Ordering Physician: Jelly Gu Date of Service: 08/31/25 Procedure(s): XR Knee Hermelindo 3V Accession Number(s): [id number] cc: Jelly Gu Reason for Exam: Bilat knee pain XR KNEE HERMELINDO 3V HISTORY: Bilateral knee pain. COMPARISON: None. TECHNIQUE: AP view bilateral knees standing, lateral and patellofemoral views bilateral knees. FINDINGS: RIGHT KNEE: No fracture, dislocation, or suspicious bone lesion. Joint spaces are normal in all 3 compartments. Normal patellar alignment. No abnormal patellar tilt. No evidence of joint effusion. Soft tissues appear normal. LEFT KNEE: No fracture, dislocation, or suspicious bone lesion. Joint spaces are normal in all 3 compartments. Normal patellar alignment. No abnormal patellar tilt. No evidence of joint effusion. Soft tissues appear normal. XR/XR Knee Hermelindo 3V IMPRESSION: 1. Normal radiographs of the bilateral knees. Electronically signed by: Phillip Chase MD 08/31/2025 01:45 PM EDT Dictated By: Phillip Chase MD Signed By: <Electronically signed by Phillip Chase MD in OV> 08/31/25 1345 DD/ 1336 TD/TT: 08/31/25 1338 Inspector Advanced Composite: Jelly Gu FHA UNDERWRITER IMG XR PROCEDURES Final Result documented in this encounter Visit Diagnoses Diagnosis Acute bilateral knee pain- Primary documented in this encounter Additional Health Concerns Assessment Noted Time PHQ-9 Depression Total Score: 0 07/06/20 25 2:33 PM EDT documented as of this encounter Care Teams Calender Operator Helper Relationship Specialty Start Date End Date Cristina Hong ANP [address] [place] [phone] PCP - General Family Medicine 12/05/19 documented as of this encounter
--- OUTSIDE RECORDS SUMMARY | 2025-08-31 14:30 | XMS_ITS | Clinical Summary ---
Author Organization [employer] Address [address] [place] [address] Care Team Providers Care Punch Machine Operator Name Role Phone Edd Sanchez SERENITY Primary Care Provider [phone] Allergies No known active allergies Medications acetaminophen (Tylenol) 500 MG tabletIndicatio ns:Supra-erupti on of tooth Take 1 tablet (500 mg) by mouth every 6 (six) hours if needed for mild pain for up to 20 doses. 20 tablet 4 Active naproxen (Naprosyn) 500 MG tablet Take 1 tab BID x 5 days then PRN 20 tablet 5 Active ibuprofen 600 MG tabletIndicatio ns:Supra-erupti on of tooth Take 1 tablet (600 mg) by mouth every 6 (six) hours if needed for mild pain for up to 20 doses. 20 tablet 4 08/31/20 25 Discontinue d(Therapy completed) doxycycline (Vibra-Tabs) 100 MG tabletIndicatio ns:Abscess Take 1 tablet (100 mg) by mouth 2 times daily for 7 days. Take with a full glass of water and do not lie down for at least 30 minutes after. 14 tablet 5 08/28/20 25 Active Problems Problem Noted Date Diagnosed Date Pulmonary hypertension (CMS/HCC) 08/21/2025 VSD (ventricular septal defect) 07/06/2025 Supra-eruption of tooth 10/15/2024 Encounters Date Type Department Care Team Description 08/31/2025 11:00 AM EDT Office Visit [facility] [address] [place] [address] Jelly Gu FNP Acute bilateral knee pain (Primary Dx) 08/31/2025 Travel 08/24/2025 Results [address]-Up [address] [place] [address] Edd Sanchez ANP Urinalysis, Complete, with Reflex to Culture 08/21/2025 2:30 PM EDT Office Visit [facility] [place] [address] Edd Sanchez ANP VSD (ventricular septal defect) (Primary Dx); Pulmonary hypertension (CMS/HCC); Healthcare maintenance; Proteinuria, unspecified type; Hematuria, unspecified type; History of pilonidal cyst; Encounter for immunization; Encounter for vaccination; Abscess 08/21/2025 Orders Only [address] [place] [address] Edd Sanchez ANP 08/21/2025 Travel 08/19/2025 [address] [place] [address] Edd Sanchez ANP chart prep 08/14/2025 Patient Outreach [address] [address] Edd Sanchez ANP Pre-visit Planning (Pre visit planning LVM ) 07/21/2025 Orders Only [address] [place] [address] Edd Sanchez ANP VSD (ventricular septal defect) (Primary Dx) 07/21/[address] [address] Edd Sanchez ANP Referral 07/17/2025 Orders Only [address] [address] Edd Sanchez ANP 07/10/2025 Results Follow-Up [address] [address] Edd Sanchez ANP Albumin, Random Urine W/Creatinine, Urinalysis, Complete, with Reflex to Culture 07/08/2025 [address] [place] [address] Edd Sanchez ANP Telephone Call 07/06/2025 2:15 PM EDT Office Visit [address] [place] [address] Edd Sanchez ANP VSD (ventricular septal defect) (Primary Dx); Proteinuria, unspecified type; Healthcare maintenance 07/06/2025 Travel 07/03/2025 Telephone [facility] [address] [place], [place] [phone] Edd Sanchez ANP chart prep from Last 3 Months Immunizations Immunization Administration Dates Next Due Hep B, adult 06/22/2020,01/22/2020,12/22/2019 Influenza injectable quadriv alent preservative free 12/05/2019 Influenza, seasonal, injecta ble, preservative free 08/21/2025 Pfizer Covid-19 Vaccine 12+ 08/21/2025 TD (adult), 2 Lf tetanus tox oid, [...] Mass Index 23.05 08/31/2025 11:15 AM EDT Plan of Treatment Health Maintenance Due Date Last Done Comments Lipid Panel 1985 SDOH Screening 1985 Family Planning (PISQ) 2001 HPV Vaccines (1 - Male 3-dos e series) 2001 Dental Oral Exam 05/01/2024 10/30/2023 Dental Prophylaxis 05/01/2024 10/30/2023 Dental X-Ray: Bitewings 10/31/2024 10/30/2023 Alcohol/Substance Use Screening 07/06/2026 07/06/2025 Depression Screening 07/06/2026 07/06/2025, 07/06/2025 Disability Screening 07/06/2026 07/06/2025 Tobacco Screening 08/31/2026 08/31/2025 Dental X-Ray: Full Mouth 10/31/2026 10/30/2023 DTaP/Tdap/Td Vaccines (2 - T d or Tdap) 07/06/2035 07/06/2025, 06/10/2019 Zoster Vaccines (1 of 2) 2036 RSV Patients and Patients Aged 60 years or older (1 - 1-dose 75+ series) 2061 HIV Screening Completed 12/05/2019 Hepatitis C Screening Completed 12/05/2019 Hepatitis B Vaccines Completed 06/22/2020, 01/22/2020, 12/22/2019 COVID-19 Vaccine Completed 08/21/2025, 04/20/2021, 03/23/2021 Influenza Vaccine Completed 08/21/2025, 12/05/2019 HIB Vaccines Aged Out No longer eligi [...] VIEWS BILATERAL Routine 08/31/2025 1:36 PM EDT GRAM STAIN RESULT (NON ORDERABLE) Routine 08/21/2025 3:44 PM EDT URINALYSIS, COMPLETE, WITH REFLEX TO CULTURE Routine 08/21/2025 3:44 PM EDT US RENAL COMPLETE Routine 07/17/2025 3:3 0 [...] Recently Relevant to Health Maintenance Results * XR Knee 3 Views Bilateral (08/31/2025 1:36 PM EDT) Anatomical Region Laterality Modality Lower Extremities, Knee Bilateral Radiogra phic Imaging 08/31/2025 1:36 PM EDT Narrative 08/31/2025 1:48 PM EDT [address] [address] XRay Report Signed Patient: Junior Foster Gagnon MR# : [id number] : 1985 Acct:[id number] Age/Sex: 40 / M ADM Date: 08/31/25 Loc: HO.HHCX Attending Dr: Jelly FOLEY Ordering Physician: Jelly Gu Date of Service: 08/31/25 Procedure(s): XR Knee Cornel 3V Accession Number(s): [id number] cc: Jelly Gu Reason for Exam: Bilat knee pain XR KNEE CORNEL 3V HISTORY: Bilateral knee pain. COMPARISON: None. [...] effusion. Soft tissues appear normal. XR/XR Knee Cornel 3V IMPRESSION: 1. Normal radiographs of the bilateral knees. Electronically signed by: Phillip Chase MD 08/31/2025 01:45 PM EDT Dictated By: Phillip Chase MD Signed By: <Electronically signed by Phillip Chase MD in OV> 08/31/25 1345 DD/ 1336 TD/TT: 08/31/251337 Investor Relations Analyst: Procedure Note Jadjanelucía, Image - 08/31/2025 [facility] [address] [place] [address] XRay Report Signed Patient: Brian Burroughs Junior AMR# : [id number] : 1985Acct:[id number] Age/Sex: 40 / MADM Date: 08/31/25 Loc: HO.HHCX Attending Dr: Jelly FOLEY Ordering Physician: Jelly Gu Date of Service: 08/31/25 Procedure(s): XR Knee Cornel 3V Accession Number(s): [id number] cc: Jelly Gu Reason for Exam: Bilat knee pain XR KNEE CORNEL 3V HISTORY: Bilateral knee pain. COMPARISON: None. [...] effusion. Soft tissues appear normal. XR/XR Knee Cornel 3V IMPRESSION: 1. Normal radiographs of the bilateral knees. Electronically signed by: Phillip Chase MD 08/31/2025 01:45 PM EDT Dictated By: Phillip Chase MD Signed By: <Electronically signed by Phillip Chase MD in OV> 08/31/25 1345 DD/ 1336 TD/TT: 08/31/251337 Investor Relations Analyst: Jelly FOLEY IMG XR PROCEDURES Final Result * Gram Stain Result (08/21/2025 3:44 PM EDT) 08/21/2025 3:44 PM EDT 08/21/2025 6:13 PM EDT Comment:Butt Left Narrative [facility] - 08/24/2025 8:44 AM EDT Gram stain results: No polys 3+ epithelial cells No organisms seen Routine Culture Report - external Routine Culture 1+ Mixed chirag Specimen Source: Buttock Left us Edd Sanchez ANP HISTORICAL/NON ORDERABLE LABS Fi nal Result [facility] [address] [place] [address] [phone] * (ABNORMAL) Urinalysis, Complete, with Reflex to Culture (08/21/2025 3:44 PM EDT) Only the most recent of2 resultswithin the time period is included. Color Urine Yellow [facility] Appearance Urine Clear [facility] PH 6.0 5.0 - 9.0 [facility] Glucose Urine UA Negative Negative mg/dL [facility] Urine Blood Moderate (2+)(A) Negative [facility] Specific [place] - Urine 1.015 1.005 - 1.025 [facility] Urine Protein Trace Neg-Trace mg/dL [facility] Urine Ketones Negative Negative mg/dL [facility] Nitrite Urine Negative Negative [facility] Leukocyte Esterase Urine Negative Negative [facility] RBC Urine 0-2 0 - 2 /HPF [facility] Urine WBC 0-5 0 - 5 /HPF [facility] Urine Squamous Epithelial Cell 0-2 0 - 2 /HPF [facility] Urine Bacteria None Seen None Seen [facility] Hyaline Casts, Urine 0-2 0 - 2 /LPF [facility] 08/21/2025 3:44 PM EDT 08/21/2025 6:13 PM EDT Narrative [facility] - 08/21/2025 8:07 PM EDT Urine, Clean Catch us Edd Sanchez ANP LAB URINE ORDERABLES Final Resul t [facility] [address] [place] [phone] * US Renal Complete (07/17/2025 3:30 PM EDT) Anatomical Region Laterality Modality Kidney Ultrasound 07/17/2025 3:30 PM EDT Narrative 07/17/2025 3:53 PM EDT [address] [address] Ultrasound Report Signed Patient: Junior Foster Gagnon MR# : [id number] : 1985 Acct:[id number] Age/Sex: 39 / M ADM Date: 07/17/25 Loc: NA Attending Dr: Edd Sanchez NP Ordering Physician: EDD SANCHEZ NP Date of Service: 07/17/25 Procedure(s): US renal BI Accession Number(s): [id number] cc: EDD SANCHEZ NP EXAMINATION: US RETROPERITONEAL [...] Avery MD in OV> 07/17/25 1550 DD/ 1530 TD/TT: 07/17/25 1537 Investor Relations Analyst: Procedure Note Donotuseinterpreter, Image - 07/17/[address] [address] Ultrasound Report Signed Patient: Brian Burroughs Junior AMR# : [id number] : 1985Acct:[id number] Age/Sex: 39 / MADM Date: 07/17/25 Loc: .CARD Attending Dr: Edd Sanchez LOG HAUL OPERATOR Ordering Physician: EDD SANCHEZ NP Date of Service: 07/17/25 Procedure(s): US renal BI Accession Number(s): [id number] cc: EDD SANCHEZ NP EXAMINATION: US RETROPERITONEAL [...] Srinivasa Lugo MD 07/17/2025 03:50 PM EDT RP Dictated By: Srinivasa Castano MD Signed By: <Electronically signed by Srinivasa Avery MDin OV> 07/17/25 1550 DD/ 1530 TD/TT: 07/17/25 1537 Investor Relations Analyst: us Edd Sanchez ANP IMG US PROCEDURES Final Result * (ABNORMAL) Albumin, Random Urine W/Creatinine (07/06/2025 2:39 PM EDT) Creatinine, Urine 103.35 mg/dL [facility] Microalbumin Urine 103.0 mg/L [facility] Microalbum Creatinine Ratio Ur 99.6(H) <30 ug/mg cr [facility] Comment:Albumin/Creatinine R atio Reference Ranges: Normal: < 30 ug/mg creatinine Microalbuminuria: 30 - 300 ug/mg creatinineClinical Albuminuria: > 300 ug/mg creatinine Urine (Urine, Random) 07/06/2025 2:39 PM EDT 07/06/2025 4:35 PM EDT us Edd [facility] URINE ORDERABLES Final Resul t Performing Organization Address [facility]/ZIP Co de Phone Number [facility] [address] [place] [phone] [phone] * HEPATITIS C ANTIBODY RFLX (12/05/2019 10:54 AM EST) Pathologist [facility] HEPATITIS C ANTIBODY NONREACTIVE NONREACTIVE [facility] Comment: Antibodies to HCV not detected; does not exclude early acute HCV infection. 12/05/2019 10:5 4 AM EST us Edd Sanchez ANP HISTORICAL/NON ORDERABLE LABS Fi nal Result Performing Organization Address [facility] de Phone Number [facility] [address] * HIV AB/AG (12/05/2019 10:54 AM EST) Pathologist [facility] HIV AG/AB NONREACTIVE [facility] [...] of detection of this assay. The [facility] Attendant HIV Ag/Ab Combo assay result and supplemental assay results should be interpreted in conjunction with the patient's clinical presentation, history and other laboratory results. If the results are inconsistent with clinical evidence, additional testing is suggested to confirm the result. 12/05/2019 10:5 4 AM EST us Edd Sanchez ANP HISTORICAL/NON ORDERABLE LABS Fi nal Result [facility] [address] from Last 3 Months or Most Recently Relevant to Health Maintenance Insurance [facility] 2 DENTAL - HSN FULL (MEDICAID) Care Teams Punch Machine Operator Relationship Specialty Start Date End Date Edd Sanchez ANP [address] [place] [phone] PCP - General Family Medicine 12/05/19
--- OUTSIDE RECORDS SUMMARY | 2025-08-31 14:30 | XMS_ITS | Encounter Summary ---
Author Organization [employer] Address [address] [place] [address] Care Team Providers Care Overhauler Helper Name Role Phone Cristina Hong Primary Care Provider [phone] Encounter Details Date Type Department Care Team (Late st Contact Info) Description 08/24/2025 Results Follow-Up [facility] [address] [place] [address] Cristina Hong ANP [address] [place] [address] Urinalysis, Complete, with Reflex to Culture Social History Tobacco Use Types Packs/Day Years Used Date Smoking Tobacco: Never Smokeless Tobacco: Never Depression Answer Date Recorded Patient Health Questionnaire-9 [...] AM EDT documented as of this encounter Plan of Treatment Not on file documented as of this encounter Visit Diagnoses Not on filedocumented in this encounter Additional Health Concerns Assessment Noted Time PHQ-9 Depression Total Score: 0 07/06/20 25 2:33 PM EDT documented as of this encounter Care Teams Overhauler Helper Relationship Specialty Start Date End Date rCistina Hong ANP [address] [place] [phone] PCP - General Family Medicine 12/05/19 documented as of this encounter
--- OUTSIDE RECORDS SUMMARY | 2025-08-31 14:30 | XMS_ITS | Encounter Summary ---
Author Organization [employer] Address [address] [place] [address] Care Team Providers Care Keypuncher Name Role Phone Cristina Hong SERENITY Primary Care Provider [phone] Encounter Details Date Type Department Care Team (Latest Contact Info) Description 08/31/2025 Travel Social History Tobacco Use Types Packs/Day Years [...] documented as of this encounter Care Teams Keypuncher Relationship Specialty Start Date End Date Cristina Hong ANP [address] [place] [address] PCP - General Family Medicine 12/05/19 documented as of this encounter
== END 2025-08-31 11:59 | disposition home or self-care (01) ==
LOC: HO.HHCX 11:58
PROVIDERS: PCP Nurse Practitioner Family; Visit Provider Nurse Practitioner Family
DX: M25.561 Pain in right knee (principal); M25.562 Pain in left knee
CPT/HCPCS: 73562

== ENCOUNTER → 2025-08-31 12:29 | Outpatient (BNV) | payer OTHER, SELFPAY | PROVIDERS: PCP Nurse Practitioner Family; Visit Provider Radiology Diagnostic Radiology | DX: M25.569 Pain in unspecified knee (principal) | CPT/HCPCS: 73562 ==

== ENCOUNTER 2025-10-07 10:22 | Outpatient (AMB) | payer OTHER, SELFPAY ==
--- NOTE | 2025-10-07 10:25 | MHC.OFFVIS ---
Vital Signs 10/07/25 10:36 Height 5 ft 7 in Weight 151 lb 8 oz BMI 23.7 Intake Visit Reasons: Pilonidal cyst Intake Note: Patient was referred by Cristina Hong for an assessment for pilonidal cyst. Pt c/o; completed doxycycline, reports he had pus over one month ago, reports he felt like this cyst popped. Workforce Consultant Required: Yes Workforce Consultant Language: Socket Puller Services: Workforce Consultant Present Workforce Consultant Name: Delfina Information Interpreted: non-clinical & clinical Accompanied by: Self / Same As Patient Allergies No Known Allergies Allergy (Verified 10/07/25 10:38) Medication List - Last Reconciled 10/07/25 by Eugene Bautista MD No Known Home Meds HPI HPI Pilonidal cyst: Details: 40-year-old male referred for a question of a pilonidal cyst. About over a month ago, he noted a small area of swelling and redness on the left buttock. He says that this drained spontaneously. He said he was on antibiotics. He says that this has not happened again. He said he has had no swelling, pain or tenderness on the area for several weeks now. He points to the area of the left buttock he had a gluteal cleft as where the swelling was. [facility] Medical History (Updated 10/07/25 @ 10:37 by Eugene Bautista MD) Cyst of buttocks VSD (ventricular septal defect) Family History (Updated 07/28/25 @ 11:15 by Savi Tillman) Father No problems noted. Mother No problems noted. Social History (Updated 07/28/25 @ 11:16 by Savi Tillman) Alcohol intake: current Alcohol intake frequency: a few times a week Alcohol type: beer Patient Tobacco Use Status: Never used Tobacco Review of Systems Const Denies chills and Denies fever(s) Card Denies chest pain, Denies dyspnea and Denies dyspnea on exertion Resp Denies cough, Denies dyspnea and Denies dyspnea on exertion GI Denies hematochezia and Denies change in bowel habits Denies hematuria and Denies difficulty urinating Musc Denies back pain and Denies limited range of motion Neuro Denies focal weakness and Denies convulsions Psych Denies depression and Denies mood swings Physical Exam Const General: comfortable and no acute distress Orientation/consciousness: patient oriented x3 Neck Neck: Yes no lymphadenopathy Resp Auscultation: clear to auscultation bilaterally Cardio Rhythm: regular rhythm GI Palpation (GI): Soft to palpation, nontender and no guarding Back/Spine/Pelvis Other: No redness, no induration, no drainage, no swelling on the left buttock nor the sacrococcygeal area Neuro General: patient oriented x3 Assessment & Plan Assessment & Plan (1) Cyst of buttocks: Code(s): L72.9 - Follicular cyst of the skin and subcutaneous tissue, unspecified Category: Medical Plan: He describes an area of swelling and drainage on his left buttock I am for a month ago. This had resolved on his own. He currently denies any pain, swelling and tenderness. Physical exam does not suggest any cystic induration, or redness. He does not have any pilonidal cyst. He does not need any surgical intervention currently. I did tell him that if he has recurrence down the line, he can come back to the office so we can re-evaluate. Coding Level of Care Code New Pt Level 3 (39531) Diagnoses Cyst of buttocks L72.9
[2025-10-07 10:36] VITALS: BMI 23.7
--- OUTSIDE RECORDS SUMMARY | 2025-10-07 12:20 | XMS_ITS | Clinical Summary ---
Author Organization [employer] Address [address] [place] [address] Care Team Providers Care Equities Trader Name Role Phone Edd Sanchez Primary Care Provider [phone] Allergies No known active allergies Medications acetaminophen (Tylenol) 500 MG tabletIndication s:Supra-eruption of tooth Take 1 tablet (500 mg) by mouth every 6 (six) hours if needed for mild pain for up to 20 doses. 20 tablet 10/15/2024 Active naproxen (Naprosyn) 500 MG tabletIndication s:Acute bilateral knee pain Take 1 tab BID x 5 days then PRN 20 tablet 08/31/2025 Active Active Problems Problem Noted Date Diagnosed Date Pulmonary hypertension (CMS/HCC) 08/21/2025 VSD (ventricular septal defect) 07/06/2025 Supra-eruption of tooth 10/15/2024 Encounters Date Type Department Care Team Description 09/03/2025 Telephone [facility] [address] [place] [address] Montse Patricia, RN 08/31/2025 11:00 AM EDT Office Visit [facility] [address] [place] [phone] Jelly Gu FNP Acute bilateral knee pain (Primary Dx) 08/31/2025 Travel 08/24/2025 Results Follow-Up [facility] [address] [place] [address] Edd Sanchez ANP Urinalysis, Complete, with Reflex to Culture 08/21/2025 2:30 PM EDT Office Visit [facility] [address] [place] [address] Edd Sanchez ANP VSD (ventricular septal defect) (Primary Dx); Pulmonary hypertension (CMS/HCC); Healthcare maintenance; Proteinuria, unspecified type; Hematuria, unspecified type; History of pilonidal cyst; Encounter for immunization; Encounter for vaccination; Abscess 08/21/2025 Orders Only [address] [address] Edd Sanchez ANP 08/21/2025 Travel 08/19/[address] [address] Edd Sanchez ANP chart prep 08/14/2025 Patient Outreach [address] [address] Edd Sanchez ANP Pre-visit Planning (Pre visit planning LVM ) 07/21/2025 Orders Only [address] [address] Edd Sanchez ANP VSD (ventricular septal defect) (Primary Dx) 07/21/[address] [address] Edd Sanchez ANP Referral 07/17/2025 Orders Only [address] [address] Edd Sanchez ANP 07/10/2025 Results Follow-Up [address] [address] Edd Sanchez ANP Albumin, Random Urine W/Creatinine, Urinalysis, Complete, with Reflex to Culture 07/08/[address] [address] Edd Sanchez ANP Telephone Call from Last 3 Months Immunizations Immunization Administration [...] Comments Lipid Panel 1986 SDOH Screening 1986 HIB Vaccines (1 of 1 - Risk 1-dose series) 11/11/1987 Meningococcal Vaccine (1 - Risk 2-dose series) 1988 Meningococcal B Vaccine (1 o f 4 - Increased Risk) 1996 Family Planning (PISQ) 2001 HPV Vaccines (1 [...] 04/20/2021, 03/23/2021 Influenza Vaccine Completed 08/21/2025, 12/05/2019 Hepatitis A Vaccines Aged Out No long [...] VIEWS BILATERAL Routine 08/31/2025 1:36 PM EDT Acute bilateral knee pain GRAM STAIN RESULT (NON ORDERABLE) Routine 08/21/2025 3:44 PM EDT URINALYSIS, COMPLETE, WITH REFLEX TO CULTURE Routine 08/21/2025 3:44 PM EDT US RENAL COMPLETE Routine 07/17/2025 3:3 0 PM EDT PROPHYLAXIS - ADULT Routine 10/30/2023 8 :00 [...] PM EDT Narrative 08/31/2025 1:48 PM EDT [address] [address] XRay Report Signed Patient: Junior Foster Gagnon MR# : [id number] : 1985 Acct:[id number] Age/Sex: 40 / M ADM Date: 08/31/25 Loc: HO.HHCX Attending Dr: Jelly FOLEY Ordering Physician: Jelly Gu Date of Service: 08/31/25 Procedure(s): XR Knee Hermelindo 3V Accession Number(s): [id number] cc: Jelly Gu Reason for Exam: Bilat [...] Phillip Chase MD 08/31/2025 01:45 PM EDT RP Dictated By: Phillip Chase MD Signed By: <Electronically signed by Phillip Chase MD in OV> 08/31/25 1345 DD/ 1336 TD/TT: 08/31/25 1338 Weight Loss Physician: Procedure Note Donotuseinterpreter, Image - 08/31/[address] [address] XRay Report Signed Patient: Brian Burroughs Junior AMR# : [id number] : 1985Acct:[id number] Age/Sex: 40 / MADM Date: 08/31/25 Loc: HO.HHCX Attending Dr: Jelly FOLEY Ordering Physician: Jelly Gu Date of Service: 08/31/25 Procedure(s): XR Knee Hermelindo 3V Accession Number(s): [id number] cc: Jelly Gu Reason for Exam: Bilat [...] 08/31/25 1345 DD/ 1336 TD/TT: 08/31/25 1338 Weight Loss Physician: us Jelly Okluiso DIRECTOR PERIOPERATIVE IMG XR PROCEDURES Final Result * Gram Stain Result (08/21/2025 3:44 PM EDT) 08/21/2025 3:44 PM EDT 08/21/2025 6:13 PM EDT Comment:Butt Left Narrative [facility] - 08/24/2025 8:44 AM EDT Gram stain results: No polys 3+ epithelial cells No organisms seen Routine Culture Report - external Routine Culture 1+ Mixed chirag Specimen Source: Buttock Left us Edd Sanchez ANP HISTORICAL/NON ORDERABLE LABS Fi nal Result [facility] [address] [place] [phone] * (ABNORMAL) Urinalysis, Complete, with Reflex to Culture (08/21/2025 3:44 PM EDT) Color Urine Yellow [facility] Appearance Urine Clear [facility] PH 6.0 5.0 - 9.0 [facility] Glucose Urine UA Negative Negative mg/dL [facility] Urine Blood Moderate (2+)(A) Negative [facility] Specific [place] - Urine 1.015 1.005 - 1.025 [facility] Urine Protein Trace Neg-Trace mg/dL [facility] Urine Ketones Negative Negative mg/dL [facility] Nitrite Urine Negative Negative [facility] Leukocyte Esterase Urine Negative Negative [facility] RBC Urine 0-2 0 - 2 /HPF [facility] Urine WBC 0-5 0 - 5 /HPF [facility] Urine Squamous Epithelial Cell 0-2 0 - 2 /HPF [facility] Urine Bacteria None Seen None Seen [facility] Hyaline Casts, Urine 0-2 0 - 2 /LPF [facility] 08/21/2025 3:44 PM EDT 08/21/2025 6:13 PM EDT Narrative [facility] - 08/21/2025 8:07 PM EDT Urine, Clean Catch us Edd Sanchez ANP LAB URINE ORDERABLES Final Resul t Performing Organization Address City/State/[facility] [[email or web address]] Co de Phone Number [facility] [address] [place] [phone] * US Renal Complete (07/17/2025 3:30 PM EDT) Anatomical Region Laterality Modality Kidney Ultrasound 07/17/2025 3:30 PM EDT Narrative 07/17/2025 3:53 PM EDT [address] [address] Ultrasound Report Signed Patient: Junior Foster Gagnon MR# : [id number] : 1985 Acct:[id number] Age/Sex: 39 / M ADM Date: 07/17/25 Loc: NA Attending Dr: Edd Sanchez NP Ordering Physician: EDD SANCHEZ NP Date of Service: 07/17/25 Procedure(s): US renal BI Accession Number(s): [id number] cc: EDD SANCHEZ NP EXAMINATION: US RETROPERITONEAL [...] 07/17/25 1550 DD/ 1530 TD/TT: 07/17/25 1537 Weight Loss Physician: Procedure Note Donotuseinterpreter, Image - 07/17/2025 [place] [address] Ultrasound Report Signed Patient: Brian Burroughs Junior AMR# : [id number] : 1985Acct:[id number] Age/Sex: 39 / MADM Date: 07/17/25 Loc: HOKieraCARD Attending Dr: Edd Sanchez NP Ordering Physician: EDD SANCHEZ NP Date of Service: 07/17/25 Procedure(s): US renal BI Accession Number(s): [id number] cc: EDD SANCHEZ NP EXAMINATION: US RETROPERITONEAL [...] 07/17/25 1550 DD/ 1530 TD/TT: 07/17/25 1537 Weight Loss Physician: us Edd Sancehz ANP IMG US PROCEDURES Final Result * HEPATITIS C ANTIBODY RFLX (12/05/2019 10:54 AM EST) HEPATITIS C ANTIBODY [facility] Comment: Antibodies to HCV not detected; does not exclude early acute HCV infection. 12/05/2019 10:5 4 AM EST us Edd Sanchez ANP HISTORICAL/NON ORDERABLE LABS Fi nal Result Performing Organization Address [facility] [address] * HIV AB/AG (12/05/2019 10:54 AM [...] of detection of this assay. The More[employer] Plate Hanger HIV Ag/Ab Combo assay result and supplemental assay results should be interpreted in conjunction with the patient's clinical presentation, history and other laboratory results. If the results are inconsistent with clinical evidence, additional testing is suggested to confirm the result. 12/05/2019 10:5 4 AM EST us Edd Sanchez ANP HISTORICAL/NON ORDERABLE LABS Fi nal Result Performing Organization Address [facility] [address] from Last 3 Months or Most Recently Relevant to Health Maintenance Insurance [facility] 2 DENTAL - HSN FULL (MEDICAID) Care Teams Equities Trader Relationship Specialty Start Date End Date Edd Sanchez ANP [address] [place] [address] PCP - General Family Medicine 12/05/19
--- OUTSIDE RECORDS SUMMARY | 2025-10-07 12:20 | XMS_ITS | Encounter Summary ---
Author Organization [employer] Address [address] [place] [address] Care Team Providers Care Materials Engineer Name Role Phone Cristina Hong Primary Care Provider [phone] Encounter Details Date Type Department Care Team (Late st Contact Info) Description 08/24/2025 Results Follow-Up [facility] [address] [place] [address] Cristina Hong ANP [address] [place] [address] Urinalysis, Complete, with Reflex to Culture Social [...] documented as of this encounter Care Teams Materials Engineer Relationship Specialty Start Date End Date Cristina Hong ANP [address] [place] [phone] PCP - General Family Medicine 12/05/19 documented as of this encounter
--- OUTSIDE RECORDS SUMMARY | 2025-10-07 12:20 | XMS_ITS | Clinical Summary ---
Author Organization [facility] Address [address] [place] [address] Phone Care Team Providers Care Collections Director Name Role Phone Cristina Hong Primary Care Provider [phone] Encounters Date Type Department Care Team Description 09/07/2025 Orders Only [facility] [address] [place] [phone] Deirdre Doty PA-C Ventricular septal defect (Primary Dx) 08/25/2025 Abstract [facility] Scheduling [address] [place] [phone] Dony Chris MD from Last 3 Months Social History Tobacco Use Types Packs/Day Years Used Date Smoking Tobacco: Never Assessed Sex and Gender Information Value Date Recorded Sex Assigned at Not on file Legal Sex Male 12:54 PM EDT Gender Identity Not on file Sexual Orientation Not on file Plan of Treatment Upcoming Encounters Date Type Department Care Team (Late st Contact Info) Description 01/14/2026 11:00 AM EST Appointment [place] [address] [facility] [address] [place] [phone] 02/16/2026 1:00 PM EDT Appointment [facility] [address] [place] [phone] 02/16/2026 2:00 PM EDT Appointment [facility] [address] [place] [phone] Lazaro Garcia MD [address] [place] [address] Health Maintenance Due Date Last Done Comments Chlamydia and Gonorrhea Screening 1986 HIV Screening 1986 MMR Vaccines (1 of 1 - Standard series) 1987 Varicella Vaccines (1 of 2 - 13+ 2-dose series) 1999 Hepatitis C Screening 2004 DTaP/Tdap/Td Vaccines (3 - T d or Tdap) 01/06/2026 07/06/2025, 06/10/2019 Hepatitis B Vaccines Completed 06/22/2020, 01/22/2020, 12/22/2019 Influenza Vaccine Completed 08/21/2025, 12/05/2019 HIB Vaccines Aged Out No longer eligi ble based on patient's age to complete this topic HPV Vaccines (No Doses Required) Completed Hepatitis A Vaccines Aged Out No long [...] 5 Years) and At-Risk Patients (6 to 49 Years) Aged Out No longer eligible b ased on patient's age to complete this topic Rotavirus Vaccines Aged Out No longer eligible based on patient's age to complete this topic Insurance [employer] Care Teams Collections Director Relationship Specialty Start Date End Date Cristina Hong [address] [place] [address] PCP - General 08/25/25
== END 2025-10-07 10:36 | disposition home or self-care (01) ==
LOC: HO.HGS 10:23
PROVIDERS: PCP Nurse Practitioner Primary Care; Visit Provider Surgery
DX: L72.9 Follicular cyst of the skin and subcutaneous tissue, unspecified (principal)
CPT/HCPCS: 99203

== ENCOUNTER → 2025-10-07 10:22 | Outpatient (BNVA) | payer OTHER, SELFPAY | PROVIDERS: PCP Nurse Practitioner Primary Care; Visit Provider Surgery | DX: L72.9 Follicular cyst of the skin and subcutaneous tissue, unspecified (principal) | CPT/HCPCS: 99202 ==

== ENCOUNTER 2025-11-03 15:33 | Outpatient (REF) | payer OTHER, SELFPAY | END 2025-11-03 15:34 | disposition home or self-care (01) | LOC: HO.LAB 15:33 | PROVIDERS: PCP Nurse Practitioner Primary Care; Visit Provider Nurse Practitioner Family | DX: R31.29 Other microscopic hematuria (principal) | CPT/HCPCS: 51798; 81003; 88112; 99202 ==

== ENCOUNTER 2025-11-03 15:33 | Outpatient (AMB) | payer OTHER, SELFPAY ==
--- NOTE | 2025-11-03 15:35 | A.OFFVIS_ITS ---
Intake Visit Reasons: microscopic Hematuria/PVR/UA Intake Note: Patient is present for MICROSCOPIC HEMATURIA/PVR/UA Urology Medication:NONE Antibiotic Allergy:NONE Blood Thinner:NONE TODAY'S PVR:0ML'S Manager Fixed Income Required: Yes Manager Fixed Income Services: Manager Fixed Income Present Manager Fixed Income Name: vijay Allergies No Known Allergies Allergy (Verified 11/03/25 15:51) Medication List - Last Reconciled 11/03/25 by SUZANNE Bolton No Known Home Meds HPI Comments Details: is a very pleasant 40-year-old Peruvian-speaking male patient of Dr. Hong. He has a past medical history of ventricular septal defect. He presents to the office today as a new patient for microscopic hematuria. He reports having recently followed up with his PCP and has noted to have ongoing issues with microscopic hematuria and urology referral was made for further assessment evaluation. In office urinalysis results reviewed with the patient today 2+ microscopic hematuria. When asked he denies any previous smoking history and or workplace chemical exposure. He denies any bothersome urinary issues. However he does discuss previously experiencing issues with folliculitis. He otherwise denies urinary urgency, urinary frequency, incontinence, nocturia, gross/visible hematuria, dysuria, foul smelling urine, changes to urinary stream, flank pain, fever, and or chills. He is happy with his current voiding parameters. In review of patient's chart it does appear he has had a recent renal ultrasound 07/20 that noted bilateral kidneys with no calculi, lesions, and or hydronephrosis. Normal renal ultrasound per radiology report. We did discussed potential causes of microscopic hematuria. We discussed further workup versus surveillance monitoring. Risks and benefits of these interventions were discussed. He does wish to proceed with in office cystoscopy. All questions were answered he otherwise offers no other issues or concerns at this time. [facility] Medical History Cyst of buttocks VSD (ventricular septal defect) Family History Father No problems noted. Mother No problems noted. Social History Alcohol intake: current Alcohol intake frequency: a few times a week Alcohol type: beer Patient Tobacco Use Status: Never used Tobacco Review of Systems Const All systems reviewed & are unremarkable except as noted in HPI and below Physical Exam Const General: cooperative, comfortable, no acute distress, well developed, alert and awake Orientation/consciousness: patient oriented x3 HEENT Head: Yes normal to inspection, Yes normocephalic and Yes atraumatic Ears: hearing grossly normal bilaterally Eyes General: appearance normal, both eyes and all related structures Neck Neck: Yes normal visual inspection and Yes trachea midline Chest Chest palpation & inspection: normal inspection of the chest Resp Effort & Inspection: normal respiratory effort and able to speak in complete sentences Cardio Rate: regular rate GI Inspection: Yes normal to inspection General: Yes no CVA tenderness Back/Spine/Pelvis Back: no CVA tenderness Skin General skin exam: no rashes or lesions noted Neuro General: patient oriented x3 Extrem General: Yes normal to inspection Psych Appearance: grossly normal and well kempt Mental Status: mental status grossly normal Speech and movement: Normal speech and movement present and Clear speech present Affect: normal affect Attitude: cooperative Thought process: Normal thought process present Thought content: Normal thought content present Office Procedures Post Void Residual Post Residual Void Post Void Residual (PVR): 0 [id number] Void Residual by ultrasound Results AMB Urinalysis, Automated UA Leukoctes 0 Keli/uL Last Edit by PASTOR Willams on 11/03/25 16:09 UA Nitrite Negative Last Edit by PASTOR Willams on 11/03/25 16:09 UA Urobilinogen 0.2 mg/dL Last Edit by PASTOR Willams on 11/03/25 16:0 9 UA Protein 30 mg/dL Last Edit by PASTOR Willams on 11/03/25 16:09 UA pH 6.0 Last Edit by PASTOR Willams on 11/03/25 16:09 UA Blood 80 Ky/uL Last Edit by PASTOR Willams on 11/03/25 16:09 UA Specific [place] 1.015 Last Edit by PASTOR Willams on 11/03/25 16: 09 UA Ketone Positive Last Edit by PASTOR Willams on 11/03/25 16:09 UA Bilirubin 0 mg/dL Last Edit by PASTOR Willams on 11/03/25 16:09 UA Glucose 0 mg/dL Last Edit by PASTOR Willams on 11/03/25 16:09 Results Reviewed Results Reviewed: Date of Service: 07/17/25 Procedure(s): US renal BI FINDINGS: RIGHT KIDNEY: 10 x 7 x 6 cm (SAG x AP x TRV). Volume: 205 cc. Normal echotexture. Normal renal cortical thickness. No hydronephrosis. No gross solid or cystic lesion detected by the technologist. LEFT KIDNEY: 10 x 6 x 6 cm (SAG x AP x TRV). Volume: 189 cc. Normal echotexture. Normal renal cortical thickness. No hydronephrosis. No gross solid or cystic lesion detected. IMPRESSION: Normal exam. Assessment & Plan Assessment & Plan (1) Microscopic hematuria: Code(s): R31.29 - Other microscopic hematuria Category: Medical Plan In office urinalysis results with the patient today; as noted above; will send for urine cytology. He currently denies any bothersome urinary issues or concerns. He reports be happy with current voiding parameters. Most recent renal imaging results with the patient today; as noted above. Will obtain bladder ultrasound for further assessment evaluation. We did discuss potential causes of microscopic hematuria; we discussed surveillance monitoring verses further intervention All questions were answered He would like to proceed with cystoscopy Follow-up per doctor's orders; or sooner with any issues, concerns, and or questions. Orders: Orders AMB Urinalysis Automated Today Z13.9 - Encounter for screening, unspecified Urine Cytology Today R31.29 - Other microscopic hematuria US bladder Today R31.29 - Other microscopic hematuria Patient Instructions: The patient had an opportunity to ask questions regarding the treatment plan. All questions were answered. Physical exam, labs, and imaging were discussed and reviewed in detail. As well as risks, benefits, and discussion of treatment c hoices. No major barriers to understanding were identified. The patient expressed understanding and agreement with the above treatment plan. The patient was made aware they should contact our office by phone for worsening of their current condition, the appearance of new symptoms, or with any questions or concerns. Compliance is encouraged with any medications and follow up testing that is ordered. It is a privilege to be allowed the opportunity to participate in? your urological care.? Again, if you have any questions or concerns If you have any questions or concerns please do not hesitate to contact me. The office is [phone]. This note is constructed using voice recognition software. While every effort has been made to ensure accuracy knitting machine fixer head errors may have been included. Yours sincerely, ALAINA Bolton-ALEX Coding Level of Care Code New Pt Level 3 (88393) Diagnoses Microscopic hematuria R31.29 CPT Codes Post Residual Void - PVR CPT Code: 15680-Yqgd Void Residual by ultrasound ([id number])
--- OUTSIDE RECORDS SUMMARY | 2025-11-03 22:17 | XMS_ITS | Clinical Summary ---
Author Organization [employer] Address [address] [facility] [facility] [address] [place] [address] Care Team Providers Care Wood Pattern Maker Name Role Phone Cristina Hong Primary Care Provider [phone] Allergies No known active allergies Medications acetaminophen [...] Type Department Care Team Description 09/03/2025 Telephone [facility] [address] [place] [phone] Montse Patricia, RN 08/31/2025 11:00 AM EDT Office Visit [facility] [address] [place] [phone] Jelly Gu FNP Acute bilateral knee pain (Primary Dx) 08/31/2025 Travel 08/24/2025 Results Follow-Up [facility] [address] [place] [address] Cristina Hong ANP Urinalysis, Complete, with Reflex to Culture 08/21/2025 2:30 PM EDT Office Visit [facility] [address] [place] [address] Cristina Hong ANP VSD (ventricular septal defect) (Primary Dx); Pulmonary hypertension (CMS/HCC); Healthcare maintenance; Proteinuria, unspecified type; Hematuria, unspecified type; History of pilonidal cyst; Encounter for immunization; Encounter for vaccination; Abscess 08/21/2025 Orders Only [address] [address] Cristina Hong ANP 08/21/2025 Travel 08/19/[address] [address] Cristina Hong ANP chart prep 08/14/2025 Patient Outreach [address] [address] Cristina Hong ANP Pre-visit Planning (Pre visit planning LVM ) from Last 3 Months Immunizations Immunization Administration [...] TO CULTURE Routine 08/21/2025 3:44 PM EDT PROPHYLAXIS - ADULT Routine 10/30/2023 [...] PM EDT Narrative 08/31/2025 1:48 PM EDT [address] [address] XRay Report Signed Patient: Junior Foster Gagnon MR# : [id number] : 1985 Acct:[id number] Age/Sex: 40 / M ADM Date: 08/31/25 Loc: .HHCX Attending Dr: Jelly FOLEY Ordering Physician: Jelly Gu Date of Service: 08/31/25 Procedure(s): XR Knee Hermelindo 3V Accession Number(s): [id number] cc: Jelly Gu Reason for Exam: Bilat [...] OV> 08/31/25 1345 DD/ 1336 TD/TT: 08/31/251337 Court Monitor: Procedure Note Cieloter, Image - 08/31/[address] [address] XRay Report Signed Patient: Brian Burroughs Junior AMR# : [id number] : 1985Acct:[id number] Age/Sex: 40 / MADM Date: 08/31/25 Loc: HO.HHCX Attending Dr: Jelly FOLEY Ordering Physician: Jelly Gu Date of Service: 08/31/25 Procedure(s): XR Knee Hermelindo 3V Accession Number(s): [id number] cc: Jelly Gu Reason for Exam: Bilat [...] in OV> 08/31/25 1345 DD/ 1336 TD/TT: 08/31/258 Court Monitor: Jelly FOLEY IMG XR PROCEDURES Final Result * Gram Stain Result (08/21/2025 3:44 PM EDT) 08/21/2025 3:44 PM EDT 08/21/2025 6:13 PM EDT Comment:Butt Left Narrative [facility] - 08/24/2025 8:44 AM EDT Gram stain results: No polys 3+ epithelial cells No organisms seen Routine Culture Report - external Routine Culture 1+ Mixed chirag Specimen Source: Buttock Left us Cristina Hong ANP HISTORICAL/NON ORDERABLE LABS Fi nal Result Performing Organization Address [facility] de Phone Number [facility] [address] [place] [address] [phone] * (ABNORMAL) Urinalysis, Complete, with Reflex to Culture (08/21/2025 3:44 PM EDT) Color Urine Yellow [facility] Appearance Urine Clear [facility] PH 6.0 5.0 - 9.0 [facility] Glucose Urine UA Negative Negative mg/dL [facility] Urine Blood Moderate (2+)(A) Negative [facility] Specific [place] - Urine 1.015 1.005 - 1.025 [facility] Urine Protein Trace Neg-Trace mg/dL [facility] Urine Ketones Negative Negative mg/dL [facility] Nitrite Urine Negative Negative [facility] Leukocyte Esterase Urine Negative Negative [facility] RBC Urine 0-2 0 - 2 /HPF [facility] Urine WBC 0-5 0 - 5 /HPF [facility] Urine Squamous Epithelial Cell 0-2 0 - 2 /HPF [facility] Urine Bacteria None Seen None Seen [facility] Hyaline Casts, Urine 0-2 0 - 2 /LPF [facility] 08/21/2025 3:44 PM EDT 08/21/2025 6:13 PM EDT Narrative [facility] - 08/21/2025 8:07 PM EDT Urine, Clean Catch us Cristina Hong ANP LAB URINE ORDERABLES Final Resul t Performing Organization Address [facility]/ZIP Co de Phone Number [facility] [address] [place] [address] [phone] * HEPATITIS C ANTIBODY RFLX (12/05/2019 10:54 AM EST) Pathologist [facility] HEPATITIS C ANTIBODY NONREACTIVE [facility] Comment: Antibodies to HCV not detected; does not exclude early acute HCV infection. 12/05/2019 10:5 4 AM EST Cristina Hong ANP HISTORICAL/NON ORDERABLE LABS Fi nal Result Performing Organization Address [facility] de Phone Number [facility] [address] * HIV AB/AG (12/05/2019 10:54 AM EST) [facility] HIV AG/AB NONREACTIVE NR [facility] [...] of detection of this assay. The [facility] HIV Ag/Ab Combo assay result and supplemental assay results should be interpreted in conjunction with the patient's clinical presentation, history and other laboratory results. If the results are inconsistent with clinical evidence, additional testing is suggested to confirm the result. 12/05/2019 10:5 4 AM EST Cristina Hong ANP HISTORICAL/NON ORDERABLE LABS Fi nal Result Performing Organization Address [facility] de Phone Number [facility] [address] from Last 3 Months or Most Recently Relevant to Health Maintenance [facility] (MEDICAID) Care Teams Wood Pattern Maker Relationship Specialty Start Date End Date Cristina Hong ANP [address] [place] [phone] PCP - General Family Medicine 12/05/19
--- OUTSIDE RECORDS SUMMARY | 2025-11-03 22:17 | XMS_ITS | Clinical Summary ---
Author Organization [facility] Address [address] [place] [address] Phone Care Team Providers Care Solar Sales Assessor Name Role Phone Cristina Hong Primary Care Provider [phone] Encounters Date Type Department Care Team Description 09/07/2025 Orders Only [facility] [address] [place] [phone] Deirdre Doty PA-C Ventricular septal defect (Primary Dx) 08/25/2025 Abstract [facility] Scheduling [address] [place] [phone] Dony Chris MD from Last 3 Months [...] Info) Description 01/14/2026 11:00 AM EST Appointment [place] [address] [facility] [address] [place] [phone] 02/16/2026 1:00 PM EDT Appointment [facility] [address] [place] [phone] 02/16/2026 2:00 PM EDT Appointment [address] [phone] Lazaro Garcia MD [address] [place] [address] Health Maintenance Due Date Last Done Comments [...] patient's age to complete this topic Insurance Humble Bundle Humble Bundle Care Teams Solar Sales Assessor Relationship Specialty Start Date End Date Cristina Hong [address] [place] [address] PCP - General 08/25/25
== END 2025-11-03 16:18 | disposition home or self-care (01) ==
LOC: HO.HUSH 15:33
PROVIDERS: PCP Nurse Practitioner Primary Care; Visit Provider Nurse Practitioner Family
DX: R31.29 Other microscopic hematuria (principal); Z13.9 Encounter for screening, unspecified
CPT/HCPCS: 99203